=== PATIENT | female | born 1945 | race Caucasian/White ===

== ENCOUNTER → 2016-11-09 | Outpatient (CLI) | payer MEDICARE, OTHER ==
[~2016-11-09] MED LIST: ASPI-COR81 M1 PO; AZULFIDINE500 MG PO; BACTRIM DS 8001 TAB PO; CARDIZEM30 MG PO; CIPROFLOXACIN500 M4 PO; COREG3.125 MG PO; COUMADIN6 M1 PO; Coumadin5 MG PO; DO NOT PROFILE T1 EA; Duoneb 3ML 3 MG/3 ML INH; FLAGYL500 MG PO; FLONASE0.05 MG/AC NS; FLORASTOR 33 MG1 CAP PO; FLORASTOR250 MG PO; FOLIC ACID1 MG PO; FUROSEMIDE20 M1 PO; HYDROCODONE BIT1 T11 PO; IMDUR SA30 MG PO; IRON324 M1 PO; KEFLEX 500 MG E2 CAP PO; LASIX20 MG PO; LASIX40 MG PO; LEVAQUIN LEVA-750 MG PO; LEVAQUIN750 MG PO; LIQUACEL 30 ML30 ML PO; Lopressor25 MG PO; MAXIPIME2 G1 IJ; MULTI VITAMINS1 TAB PO; Micro K10 MEQ PO; PERCOCET 325 MG1 TA2 PO; POTASSIUM20 MEQ PO; PREDNISONE50 MG PO; PROBIOTIC FORMU1 CAP PO; PROMOD 946 ML946 ML PO; PROTONIX40 MG PO; QUESTRAN LIGHT4 GM PO; SODIUM BICARBO650 MG PO; SPIRIVA18 MCG IH; SYNTHROID,LEVO25 MCG PO; SYNTHROID,LEVO50 MCG PO; SYNTHROID0.05 MG PO; SYNTHROID0.112 MG PO; TOPROL XL25 MG PO; TYLENOL EXTRA500 MG PO; VANCOMYCIN HYD500 MG PO; VENTOLIN H0.09 MG/AC INH; VITAMIN B121000 MCG PO; VITAMIN C500 MG PO; VITAMIN D50000 I3 PO; WARFARIN SOD2 MG PO; ZINC SULFATE220 M1 PO; ZOLOFT50 MG PO; ZYRTEC10 M1 PO
--- NOTE | ~2016-11-09 | PR ---
[place], [place] PROGRESS NOTE NAME: NYA MARTINEZ [facility] #: [id number] UNIT #: [id number] ROOM: DOCTOR: ELMO CloudPINKY BIRTHDATE: [birth year] DOS: 11/09/2016 CHIEF COMPLAINT: Followup of bilateral leg ulcerations. HISTORY OF PRESENT ILLNESS: This is a 71-year-old female with a history of chronic venous leg ulcerations also complicated by morbid obesity and severe lymphedema. She has very uncontrolled edema has had difficulty tolerating wraps in the past on various occasions per patient report. She has recurrent infection with cellulitis; recent pseudomonas infection was treated with Cipro. She has one more day left and then will be done with her antibiotics. She was started on cleansing with Dakin's solution. We have been using Silvadene as well as Qwick has been ordered; however, home health did not provide the dressings that we had requested and she is just using Silvadene an ABD pad. She does not have a secondary dressing available at home. She is to have a lymphedema nurse who did come and evaluate her and they do not wish to do lymphedema at this point until she has had some healing in her wounds. Overall, she says the drainage is definitely improved quite a bit. It is not draining as much the erythema is also improved and she does feel better in general. PHYSICAL EXAMINATION: VITAL SIGNS: Stable. Blood pressure is 110/60; pulse of 74, respirations 18, temp is 98. The left leg wounds are measuring approximately the same. There is some improvement as far as the maceration goes. There is improvement in the erythema as well. There is no foul odor present. There is a moderate amount of fibrin slough present, but does not appear hypergranulated as normal as it has in the past and it is definitely not as friable and it is as before. Her right lower extremity also seems to have gotten improved as well. Her wound is measuring 23 x 24 x 0.1, but it is mostly confined to the left to the right calf as well. There is less necrotic tissue overall. The erythema and edema has improved as well. Debridement was done of the left leg, selective debridement only just to remove the top layer of the fibrin slough. There is still quite a bit of fibrin slough present left after debridement so this was only a selective debridement at this time. This was accomplished with a curette. There was a minimal amount of bleeding that was controlled with pressure. Post-debridement measurements are unchanged. The patient tolerated the debridement well. The right lower extremity wound was left alone as it does seem to be fairly superficial at this time. ASSESSMENT AND PLAN: Recurrent venous leg ulcerations with recurrent cellulitis and pseudomonas infection. It definitely looks better this week than has in the past, so I would like to stay with the same dressings. I have reached out to home health once again to find out what is going on with her dressings and why she is not being provided the dressings that we have ordered. I think she definitely needs to continue with a dry of superabsorbent secondary dressing. Today in our clinic, we used Silvadene and Maxorb with ABD pads over that as that is what we have, that is our absorptive dressing that is available to us in the wound clinic; however, she was using Qwick which seems to really help according to the patient. We will continue with Tubigrip for now and once we may want to try the compression again, I would really like to try with 3-layer wrap at some point; however, I would like to try to stabilize the drainage a [place], [place] PROGRESS NOTE NAME: MICHELLENYA L [facility] #: [id number] UNIT #: [id number] ROOM: DOCTOR: PINKY BORREGO M.D. BIRTHDATE: [birth year] little bit more before we attempt that again. Followup within 1 week. PINKY BORREGO MD CM:PNREY [id number] PINKY BORREGO M.D. 11/09/162121 interface
== END ==
LOC: WOUNDCARE 08:09
DX: I87.312 Chronic venous hypertension (idiopathic) with ulcer of left lower extremity (principal); L97.822 Non-pressure chronic ulcer of other part of left lower leg with fat layer exposed; L97.811 Non-pressure chronic ulcer of other part of right lower leg limited to breakdown of skin; E66.01 Morbid (severe) obesity due to excess calories; I89.0 Lymphedema, not elsewhere classified; B96.5 Pseudomonas (aeruginosa) (mallei) (pseudomallei) as the cause of diseases classified elsewhere

== ENCOUNTER → 2016-11-16 | Outpatient (CLI) | payer MEDICARE, OTHER ==
--- NOTE | ~2016-11-16 | PR ---
[place], [place] PROGRESS NOTE NAME: NYA MARTINEZ [facility] #: [id number] UNIT #: [id number] ROOM: DOCTOR: ELMO CloudPINKY BIRTHDATE: [birth year] DOS: 11/16/2016 CHIEF COMPLAINT: Follow up of bilateral leg ulcerations. HISTORY OF PRESENT ILLNESS: This is a 71-year-old female with a history of chronic nonhealing wounds of the bilateral lower extremities at least 4 years now. Initially, she had problems with mostly in the left leg; however, now the right leg is also affected. She has chronic edema, chronic lymphedema, venous insufficiencies with recurrent cellulitis and pseudomonas infections. She had been on antibiotics in the recent past weeks with improvement in the wounds and the drainage, edema and breakdown area were definitely improved at the last time we had seen her. However, she has been off the antibiotics for a little over a week now and has a recurrence of increased drainage, more areas of breakdown, skin denuded and large amounts of drainage. She has to change her dressings almost every couple hours in order to keep the dressings from becoming too moist. She was given a secondary dressing by Home Health. She is not quite sure what the name of it is, it was not the Q-Vac that we had ordered, but something in comparable it. She says it does absorb but it does continue to keep the skin moist around it, so it is not really doing a good job as far as trying to maintain excessive drainage away from the skin. She is also on Silvadene and still using Dakins. However, she says it is just being lightly sprayed onto the wound and then rinsed thoroughly. She has no fevers or chills, but she does notice increased odor and discomfort from the excessive amount of drainage. Her aunt is with her and she lives with her aunt at this time and her aunt does report that she has been keeping her legs down a little bit more than usual just in the recent past couple of days. She does use the Tubigrip at this time. OBJECTIVE: VITAL SIGNS: Temperature is 97.9, pulse is 76, respirations 18, blood pressure is 110/64. The measurements are approximately the same at 15 x 25 x 0.1 that is on the left leg. There is still a large amount of fibrin, slough present at the base of the wound. The edema seems slightly improved, there is still a fair amount of excoriation, erythema and excessive moisture, maceration around the periwound area. There is odor present that was not noticed last week. On the right lower extremity, the area that had appeared stable last week, which was on the anterior leg, is opened again and there is denuded skin secondary to severe edema. The severe edema that is just weeping profuse amounts of fluid. The posterior calf wound is about the same. There is some fibrin and slough present. It still seems relatively superficial as before. The edema does not appear to be any worse. Debridement was done of both lower legs wounds, just the tissue only removed was just nonviable fibrin, slough only. This was accomplished with curette. A separate curette for each leg was utilized. There is minimal amount of bleeding that was controlled with pressure. The tissue removed was just fibrin, slough only. This is a selective debridement only. ASSESSMENT AND PLAN: Chronic ulcerations of bilateral lower extremities now have increased signs of inflammation with increased amount of drainage, odor and worsening wound appearance as well as increased areas of breakdown and severe perfuse drainage. We will stop the Silvadene as it does not seem to be working [place], [place] PROGRESS NOTE NAME: BECKI MARTINEZBebeto Olvera [facility] #: [id number] UNIT #: [id number] ROOM: DOCTOR: PINKY BORREGO M.D. BIRTHDATE: [birth year] anymore. I am hesitant to put the patient back on antibiotics; however, her wounds definitely looks better when she is maintained on oral antibiotics, so we will go back to the regimen that seemed to help the most which was Cipro and Keflex together. I have placed a call to Dr. Burr's office, he is aware of the plan, I did discuss this my hesitation with the patient with her history of C. diff and also her being on Coumadin; however, at this point, I do not see that we have any other feasible options for now as I think that this is the best her legs have looked when she has been on antibiotics. We will continue with the Dakin's for now, but I would have them change the dressing daily instead of 3 times a week and have them use a Dakins and keep it on the wound for a few minutes with a gauze pad and then rinse it thoroughly. I did swab the anterior tibia of the right leg with a little bit of Betadine. She said she has had Betadine before without any issues. I want to see if this will help dry up the area a little bit. This was just a one-time trial to see if this offers any benefit. So instead of Silvadene, we will use a different silver product arglaes powder has not been used on the patient, so we will try this to see if this will help absorb drainage and have her use the Maxorb over it or another alternate whatever is available by Home Health and ABD pads and have her change it daily. We will use the Tubigrip for just to help hold the dressings in place. At some point, we are going to have to try compression again, but I would like to see if we can control the drainage a little bit more before applying this. She is to follow up with us in 1 week, and I did ask her to call and report to us tomorrow to see if the Betadine seemed to help at all with some of the excessive drainage on the just areas of weepiness. Followup is in 1 week. PINKY BORREGO MD CM:MONTY [phone] PINKY BORREGO M.D. 11/17/16 1024 interface
== END ==
LOC: WOUNDCARE 01:24
DX: I87.313 Chronic venous hypertension (idiopathic) with ulcer of bilateral lower extremity (principal); L97.822 Non-pressure chronic ulcer of other part of left lower leg with fat layer exposed; L97.811 Non-pressure chronic ulcer of other part of right lower leg limited to breakdown of skin; E66.9 Obesity, unspecified; I89.0 Lymphedema, not elsewhere classified; I87.2 Venous insufficiency (chronic) (peripheral); B96.5 Pseudomonas (aeruginosa) (mallei) (pseudomallei) as the cause of diseases classified elsewhere

== ENCOUNTER → 2016-11-23 | Outpatient (CLI) | payer MEDICARE, OTHER ==
--- NOTE | ~2016-11-23 | PR ---
[place], [place] PROGRESS NOTE NAME: NYA HANDLEY [facility] #: [id number] UNIT #: [id number] ROOM: DOCTOR: ELMO CloudPINKY BIRTHDATE: [birth year] DOS: 11/23/2016 SUBJECTIVE: Ms. Handley comes in for her followup wound care visit. CHIEF COMPLAINT: Followup of bilateral leg ulcerations. HISTORY OF PRESENT ILLNESS: The elements are chronic nonhealing wounds of bilateral lower extremities, almost the entire lower left leg, and the calf area of the right leg. The etiology is venous insufficiency, chronic lymphedema with recurrent cellulitis, and chronic recurrent Pseudomonas infections. The patient has been started on antibiotics again ciprofloxacin and Keflex last week as she had increased areas of breakdown with erythema and profound drainage. She comes in today without any new complaints. She still has a lot of issues with drainage. She is using the Dakin solution and also trying to keep her legs elevated. She has not tolerated compression wraps well in the past and is just using a Tubigrip at home. She still has to change her dressings twice a day as get they do get quite soaked. PHYSICAL EXAMINATION: VITAL SIGNS: She is afebrile, pulse is 76, respirations 18, temperature is 99, blood pressure is 108/60. EXTREMITIES: The left leg measurements are the same at 15 x 25 x 0.1. There is still some erythema, which is chronic, but overall looks slightly improved. Large amounts of fibrin slough present in the base of the wounds. The right lower extremity is measuring 23 x 24 x 0.1 and is mostly located in the calf area, right calf area. Debridement was done to remove fibrin and slough. This was a selective debridement of both lower extremities. There was a moderate amount of bleeding on the right lower extremity that was controlled with pressure. Post-debridement measurements are unchanged. The patient tolerated debridement well. ASSESSMENT AND PLAN: Chronic venous stasis ulcerations with lymphedema. I think the issue is the uncontrolled edema that is keeping these wounds from healing. She has not tolerated the 3-layer wraps well or the 4-layer wrap as well nor Unna boots in the past. She does continue to have large amounts of drainage. I would like to see if we can do a wrap that she can use at home and can remove at night if she needs to change her dressings. I would continue with Arglaes powder as she just got two doses of it and so we do not really know if she is going to respond to it or not, and I would like her to go back to the Vashe solution for cleansing rather than Dakin. I would like to try to stay away from Dakin's for now. She is going to continue with her antibiotics and hopefully we will continue to see some signs of improvement. She is considering in getting an opinion from the [facility], but would like to wait until [place], [place] PROGRESS NOTE NAME: NYA HANDLEY UNIT #: [id number] ROOM: DOCTOR: PINKY BORREGO M.D. BIRTHDATE: [birth year]. Also, she is going to see if her insurance will approve a possible second opinion from [facility], which is in [place]. They do have a wound clinic there and I do recommend that she does try to obtain another opinion as we have not been able to heal her legs and she has been here in the Wound Clinic for several years without any significant changes. She has apparently tried whirlpool therapy, which she said really seemed to help a lot for her. We do not have a whirlpool and this may be something that she may consider if going back to the place to [place], which they did have whirlpool therapy there. So we will see if her insurance approves for another opinion, I would definitely recommend this. Followup is in one week. She does have home health. We ordered the Comprilan short stretch bandages to be used. I hope that she will be able to manage wrapping her legs during the day, at least she may be able to remove them at night, but I think that keeping them wrapped during the day might help if she can tolerate them. Followup is in one week. PINKY BORREGO MD CM:PNTRANS [phone] PINKY BORREGO M.D. 12/02/16 1331 interface
== END | disposition home or self-care (01) ==
LOC: WOUNDCARE 00:46
DX: I87.313 Chronic venous hypertension (idiopathic) with ulcer of bilateral lower extremity (principal); L97.822 Non-pressure chronic ulcer of other part of left lower leg with fat layer exposed; L97.811 Non-pressure chronic ulcer of other part of right lower leg limited to breakdown of skin; E66.9 Obesity, unspecified; I87.2 Venous insufficiency (chronic) (peripheral); I89.0 Lymphedema, not elsewhere classified; B96.5 Pseudomonas (aeruginosa) (mallei) (pseudomallei) as the cause of diseases classified elsewhere

== ENCOUNTER 2016-11-30 10:42 | Emergency (ER) | payer MEDICARE, OTHER ==
[~2016-11-30] VITALS: Ht 170.1 cm; Wt 139.3 kg
[~2016-11-30 10:42] MED LIST changes: -CIPROFLOXACIN500 M4 PO; -FUROSEMIDE20 M1 PO; -IMDUR SA30 MG PO; -KEFLEX 500 MG E2 CAP PO; -Lopressor25 MG PO; -PREDNISONE50 MG PO; -VENTOLIN H0.09 MG/AC INH; -WARFARIN SOD2 MG PO
[2016-11-30] MEDS ORDERED: CIPROFLOXACIN500 M4 PO (11:05)
[2016-11-30] MEDS ORDERED: Lopressor25 MG PO (11:06)
[2016-11-30] MEDS ORDERED: KEFLEX 500 MG E2 CAP PO (11:06)
[2016-11-30] MEDS ORDERED: WARFARIN SOD2 MG PO (11:07)
[2016-11-30] MEDS ORDERED: FUROSEMIDE20 M1 PO (11:08)
[2016-11-30] MEDS ORDERED: IMDUR SA30 MG PO (11:09)
[2016-11-30 11:10] VITALS: BP 99/64
[2016-11-30 11:49] LABS: BASO % 0.4 % (0.0-1.0); EOS # 0.5 10*3/uL (0.0-0.4); EOS % 5.3 % (1.0-4.0); HEMATOCRIT 36.2 % (37.0-47.0); HEMOGLOBIN 10.6 g/dl (12.0-16.0); LYMPH # 0.9 10*3/uL (1.3-4.4); LYMPH % 10.1 % (27.0-41.0); MEAN CELL VOLUME 87.4 fl (81.0-99.0); MEAN CORPUSCULAR HGB 25.6 pg (27.0-31.0); MEAN CORPUSCULAR HGB CONC 29.3 g/dl (33.0-37.0); MEAN PLATELET VOLUME 8.9 fl (9.6-12.3); MONO # 0.7 10*3/uL (0.1-1.0); MONO % 7.9 % (3.0-9.0); NEUT # 7.1 10*3/uL (2.3-7.9); NEUT % 75.9 % (47.0-73.0); PLATELET COUNT AUTOMATED 281 10*3/uL (130-400); RED BLOOD COUNT 4.14 10*6/uL (4.10-5.10); RED CELL DISTRI WIDTH 17.6 % (0-14.5); WHITE BLOOD COUNT 9.3 10*3/uL (4.8-10.8)
[2016-11-30 12:13] LABS: ALBUMIN 2.5 gm/dl (3.1-4.5); ALKALINE PHOSPHATASE 79 U/L (45-117); BILIRUBIN, TOTAL 0.3 mg/dl (0.2-1.0); BUN 30 mg/dl (7-24); CARBON DIOXIDE 26 mmol/L (21-32); CHLORIDE 108 mmol/L (98-107); EST GLOM FILT AFRICAN AMERICAN 34 ml/min; GLUCOSE 77 mg/dL (65-99); MAGNESIUM 2.3 mg/dL (1.5-2.1); POTASSIUM 4.4 mmol/L (3.5-5.1); SGOT/AST 17 IU/L (3-35); SGPT/ALT 15 U/L (12-78); SODIUM 143 mmol/L (136-145); TOTAL PROTEIN 7.6 gm/dL (6.4-8.2)
[2016-11-30 12:17] LABS: TROPONIN I < 0.015 ng/ml (<0.5)
[2016-11-30 12:20] LABS: INTERNATIONAL NORM RATIO 2.2 (2.0-3.5); PROTHROMBIN TIME 23.5 SECONDS (9.0-12.4)
[2016-11-30 12:49] LABS: BILIRUBIN NEGATIVE (NEGATIVE); BLOOD TRACE-INTACT (NEGATIVE); CLARITY CLOUDY (CLEAR); COLOR YELLOW (YELLOW); GLUCOSE NEGATIVE (NEGATIVE); KETONE NEGATIVE (NEGATIVE); LEUKO ESTERASE 1+ (NEGATIVE); NITRITE NEGATIVE (NEGATIVE); PH 5.5 (5.0-9.0); PROTEIN TRACE (NEGATIVE); UROBILINOGEN 0.2 E.U./dl (0.2-1.0)
[2016-11-30 13:26] LABS: BACTERIA 3+; URINE REFLEX COMMENT YES (NO); YEAST 2+
[2016-11-30 13:28] LABS: EPITHELIAL CELLS 20-25
[2016-11-30] MEDS ORDERED: PREDNISONE50 MG PO (14:49)
[2016-11-30] MEDS ORDERED: VENTOLIN H0.09 MG/AC INH (14:52)
== END 2016-11-30 14:56 | disposition home or self-care (01) ==
LOC: ED 10:42
PROVIDERS: Student in an Organized Health Care Education/Training Program
DX: J44.1 Chronic obstructive pulmonary disease with (acute) exacerbation (principal); I48.91 Unspecified atrial fibrillation; I25.10 Atherosclerotic heart disease of native coronary artery without angina pectoris; I25.2 Old myocardial infarction; N18.3 Chronic kidney disease, stage 3 (moderate); Z79.01 Long term (current) use of anticoagulants; Z88.6 Allergy status to analgesic agent; Z79.82 Long term (current) use of aspirin; Z79.899 Other long term (current) drug therapy; Z85.828 Personal history of other malignant neoplasm of skin

== ENCOUNTER → 2016-11-30 | Outpatient (CLI) | payer MEDICARE, OTHER ==
--- NOTE | ~2016-11-30 | PR ---
[place], [place] PROGRESS NOTE NAME: NYA MARTINEZ [facility] #: [id number] UNIT #: [id number] ROOM: DOCTOR: ELMO CloudPINKY BIRTHDATE: [birth year] DOS: 11/30/2016 CHIEF COMPLAINT: Followup of bilateral leg ulcerations. HISTORY OF PRESENT ILLNESS: The elements: The patient is a longstanding patient of the wound clinic with chronic nonhealing wounds of the bilateral lower extremities, almost the entire left lower extremity circumferential wound as well as the right. She does have a wound of the right calf, but has an extension of denuded skin on the anterior leg as well with weeping recurrent infections with pseudomonas, chronic erythema, large amounts of profuse drainage, and difficulty with compression. She offers no specific complaints. She still has a lot of drainage. She says she is not getting enough dressings from home health. The only time she experiences pain is when the wound fluid is sitting on the outer dressings and accumulating and causing discomfort because of excessive fluid. She is using the Arglaes powder, the Vashe solution and ABD pads as well as an alginate dressing; however, this is not enough and she does need to change her dressing quite frequently, but does not have enough dressing supplies for daily dressing changes. She does sometimes change the outer dressing quite frequently if it gets wet. We have tried using dressings in the past that were more absorptive such as DryMax Blue, which seems to really help; however, this was not available through home health. She does have home health and they have certain restrictions as far as wound dressings are concerned. In addition, I have requested for them to try to wrap her legs with a short stretch bandaging that she can remove at night. They are attempting to try to order this for the patient. The patient also complains of shortness of breath she has had that has been progressively worsening, a chronic cough that is productive of purulent sputum and difficulty lying flat secondary to shortness of breath. She said she has seen her primary care doctor and was asked to get a chest x-ray which she has not had done today, but she does complain of shortness of breath at this time. OBJECTIVE: VITAL SIGNS: Stable. Blood pressure is 104/64, pulse of 80, respirations 20, temperature is 98.1. WOUND EXAMINATION: The left leg looks the same 15 x 25 x 0.1. There is large amounts of exudate and large amounts of fibrin slough in the wound bed. The right lower leg calf wound is essentially the same 23 x 24 x 0.1 and there is a large amount of denuded skin on the anterior lower extremity secondary to excessive weeping. The posterior calf wound is essentially the same. Superficial fibrin slough is noted in the wound base. There is chronic erythema. It does not appear to be worse than usual. It appears to be fairly stable at this time. Debridement was done of the left lower leg as well as the right lower leg calf area, which the debridement that occurred was to remove fibrin, slough, and subcutaneous tissue. There was a moderate amount of bleeding that was controlled with pressure. Post-debridement measurements are unchanged. Curette was utilized. ASSESSMENT AND PLAN: Chronic nonhealing ulcerations of the bilateral lower extremities without any improvement. We have tried several different dressings without any significant improvement, some dressings improve the wound for a [place], [place] PROGRESS NOTE NAME: NYA MARTINEZ UNIT #: [id number] ROOM: DOCTOR: PINKY BORREGO M.D. BIRTHDATE: [birth year] short period of time, but always seems to be very temporary. We will continue with the Vashe solution for now and have her utilize the Arglaes for one more week to see if there is any change as far as improvement in the wound appearance. If not, we will perhaps have to change to a different dressing in the near future to try something else so we will continue with the Maxorb and ABD pads. We are going to use a Coban for compression, but as soon as a short stretch bandage is available that we would like her to use that instead. Home health does help her with her dressings. She is awaiting to see if she can get a second opinion from another wound clinic in [place]. She is awaiting to seek approval from her outpatient case manager for her insurance company. I am very much interested in her obtaining another opinion as she has been here for several years and has not really made any progress. We have had venous intervention done as well, lymphedema pumps have been tried. She said at one point she used whirlpool therapy, which seemed to really help her. We do not have whirlpool therapy at this facility available. The other concern is her complaints of shortness of breath, cough, and symptoms of respiratory infection. She does appear short of breath with just upon talking. She does not have any respiratory distress, but does appear mildly tachypneic with just a conversation. She does have a notable cough and some wheeze on examination and coarse breath sounds in the bases as well, left being worse than the right. I spoke to the patient that since she would continue to feel short of breath that she should probably be evaluated in the Emergency Room Department, she agreed. I did phone a report to the physician in the ED, Dr. Burr who is willing to accept the patient for evaluation so the patient was taken to the ER for further evaluation. PINKY BORREGO MD CM:PNTRANS [phone] PINKY BORREGO M.D. 12/01/16 0935 interface
== END ==
LOC: WOUNDCARE 03:49
DX: I87.313 Chronic venous hypertension (idiopathic) with ulcer of bilateral lower extremity (principal); L97.822 Non-pressure chronic ulcer of other part of left lower leg with fat layer exposed; L97.811 Non-pressure chronic ulcer of other part of right lower leg limited to breakdown of skin; I89.0 Lymphedema, not elsewhere classified; B96.5 Pseudomonas (aeruginosa) (mallei) (pseudomallei) as the cause of diseases classified elsewhere; R06.02 Shortness of breath; E66.9 Obesity, unspecified

== ENCOUNTER → 2017-01-25 | Outpatient (CLI) | payer MEDICARE, OTHER ==
[~2017-01-25] MED LIST changes: +CIPROFLOXACIN500 M4 PO; +FUROSEMIDE20 M1 PO; +IMDUR SA30 MG PO; +KEFLEX 500 MG E2 CAP PO; +Lopressor25 MG PO; +PREDNISONE50 MG PO; +VENTOLIN H0.09 MG/AC INH; +WARFARIN SOD2 MG PO
--- NOTE | ~2017-01-25 | PR ---
[place], [place] PROGRESS NOTE NAME: NYA MARTINEZ [facility] #: [id number] UNIT #: [id number] ROOM: DOCTOR: ELMO CloudPINKY BIRTHDATE: [birth year] DOS: 01/25/2017 This is a routine wound care followup. CHIEF COMPLAINT: Bilateral leg ulcerations. HISTORY OF PRESENT ILLNESS: The location of the wounds are the bilateral lower legs. The left wound is chronic for 4 years and nonhealing with recurrent cellulitis, localized wound infection, large amounts of drainage as well as a wound on the right calf, which is also associated with venous insufficiency and severe lymphedema. She has had a recent stay at a long-term acute care facility for wound care to have daily dressing changes to help her get control of the drainage as well as daily wound care therapy. She was also treated with a cold laser treatment, which seemed to really have helped her inflammation. She comes in today without any specific complaints. She is using the Drawtex, the home health was able to obtain this for her. She is also using acetic acid solution for washing her legs. She states that they have just been squirting it on the wounds instead of putting on a 4 x 4s and directly on to the wounds, so some of this acetic acid is likely getting on other parts of the leg rather than just the wounds themselves. Overall, she has no specific complaints. She has noticed a little bit more drainage on the left leg, little more areas of denuded skin on the left leg, but overall, no specific complaints. PHYSICAL EXAMINATION: VITAL SIGNS: Stable. Blood pressure is 102/60, pulse is 66, respirations 18, temperature 98.5. EXTREMITIES: The left lower leg wounds are measuring 14 x 28 x 0.1. In general, they look about the same, there is slightly less necrotic tissue overall. The erythema that normally present seems stable. There are some areas of denuded skin on the distal part of the wound, which I believe is secondary to drainage from the wound or possibly from the vinegar solution dripping down to these areas. The right lower extremity wound is measuring the same as well at 13 x 11 x 0.1. It looks relatively superficial with minimal fibrin slough present. Edema is present bilaterally as usual. A selective debridement was done of the left lower leg wound. I would say approximately 40% of this wound was debrided of devitalized tissue, only fibrin and slough, no subcutaneous tissue. The instrument used was a curette. The post-debridement measurements are unchanged. There was minimal amount of bleeding. The patient tolerated the debridement well. ASSESSMENT AND PLAN: Chronic ulceration secondary to venous insufficiency and severe lymphedema. The patient does not tolerate compression very well. The wounds appear stable in general without any signs of acute infection. We will continue with the silver dressing as well as Drawtex. She is still using acetic acid solution, we may want to consider switching to the Vashe solution, which is hypochlorite solution. She has used this before in the past and has had some good results with it. I did advise her to make sure that they are not using the acetic acid on good skin as well as will use Calazime to the periwound area to help protect it from the wound drainage. Follow up in one week. [place], [place] PROGRESS NOTE NAME: MICHELLENYA L UNIT #: [id number] ROOM: DOCTOR: PINKY BORREGO M.D. BIRTHDATE: [birth year] PINKY BORREGO MD CM:MONTY [phone] PINKY BORREGO M.D. 01/25/171922 interface
== END ==
LOC: WOUNDCARE 03:08
DX: I87.312 Chronic venous hypertension (idiopathic) with ulcer of left lower extremity (principal); L97.922 Non-pressure chronic ulcer of unspecified part of left lower leg with fat layer exposed; E66.9 Obesity, unspecified; I89.0 Lymphedema, not elsewhere classified

== ENCOUNTER → 2017-02-01 | Outpatient (CLI) | payer MEDICARE, OTHER ==
--- NOTE | ~2017-02-01 | PR ---
[place], [place] PROGRESS NOTE NAME: NYA MARTINEZ [facility] #: [id number] UNIT #: [id number] ROOM: DOCTOR: ELMO CloudPINKY BIRTHDATE: [birth year] DOS: 02/01/2017 WOUND CARE PROGRESS NOTE CHIEF COMPLAINT: Followup of nonhealing ulcers of the lower extremities. HISTORY OF PRESENT ILLNESS: The location of the wounds are the left leg and right calf associated with venous insufficiency, lymphedema, morbid obesity, recurrent cellulitis, chronic and nonhealing for several years now. She comes in today without any specific new complaints. She thinks overall the wounds are drained slightly more, there is slightly more discomfort. There is some increased breakdown because of drainage on the left leg, mostly. There are some new areas of serous fluid leaking through the right lower extremity as well. She has noticed this as well. She has been using Drawtex, acetic acid for washing her legs, and Arglaes powder as well as Drawtex. She has home health who comes in. She said that she does not have as much Drawtex left at the present time. Hopefully, this will be rectified soon. No fevers or chills are noted. OBJECTIVE: As follows: VITAL SIGNS: Temperature is 98.3, pulse of 60, respirations 18, blood pressure is 100/70. WOUND EXAMINATION: The wounds are measuring the same at 14 x 28 x 0.1 on the left leg. There is a fair amount of necrotic tissue present. This is an almost entirely circumferential wound. There is also a large wound on the posterior calf that is measuring the same as last week at 13 x 11 x 0.1. She does seem to have a little bit more edema noted on her legs today. There is some serous fluid seeping through the anterior right lower extremity. There is more redness noted today as well on the left lower extremity. There is some discoloration of the wounds secondary to what seems to be an Arglaes powder. There is more denuded skin distally as well as located in the lateral calf area as well. It does not look as clean as it did. There is moderate amount of necrotic tissue present. Debridement was done today of the left leg, mostly on the lateral part of the leg. This is more of a selective debridement only. This was also done with a different curette. A culture was obtained, a tissue culture of the left lower extremity wound as it was felt to be more erythematous than usual. ASSESSMENT AND PLAN: Chronic ulceration of bilateral lower extremities secondary to venous insufficiency and lymphedema. We have done a biopsy in the past. We may want to consider repeating this. She has been to Dr. Jefferson for venous ablation. This really has not made any improvement in her wounds as far that goes. She has had a 1 month stay at [facility], which did help some of the inflammation of the wounds, but did not really seem to make the wounds any smaller. She has been on silver now for quite some time without any significant improvement in the wounds. I would like to discontinue the acetic acid wash solution, which she had been using for an extended period of time and go back to the Vashe, which is a hypochlorite solution and Santyl as well as to continue with Drawtex. I would like to see if we can utilize compression on at least the right lower extremity, which is already starting to leak fluid from the anterior leg. She has had difficulty tolerating compression before, but we will have [place], [place] PROGRESS NOTE NAME: [facility] [id number] UNIT #: [id number] ROOM: DOCTOR: PINKY BORREGO M.D. BIRTHDATE: [birth year] home health change it 3 times a week if possible and follow up in the Wound Clinic in 1 week. We did mention about getting another consultation from the [facility]. She is willing to travel there, but does not think she is going to be able to go more than once. So I will call over there later this week to see if we can get some sort of a plan set for further referrals, consultations, possible treatment for this patient as we have not really gotten far with her wounds for a long time and she has been a Wound Clinic patient here for 4 years. The wounds have really made very little progress over the past year. PINKY BORREGO MD CM:PNTRANS [phone] PINKY BORREGO M.D. 02/02/17 1418 interface
== END ==
LOC: WOUNDCARE 01:27
DX: I87.313 Chronic venous hypertension (idiopathic) with ulcer of bilateral lower extremity (principal); L97.922 Non-pressure chronic ulcer of unspecified part of left lower leg with fat layer exposed; L97.211 Non-pressure chronic ulcer of right calf limited to breakdown of skin; I89.0 Lymphedema, not elsewhere classified; E66.01 Morbid (severe) obesity due to excess calories

== ENCOUNTER → 2017-02-08 | Outpatient (CLI) | payer MEDICARE, OTHER ==
--- NOTE | ~2017-02-08 | PR ---
[place], [place] PROGRESS NOTE NAME: NYA MARTINEZ [facility] #: [id number] UNIT #: [id number] ROOM: DOCTOR: ELMO CloudPINKY BIRTHDATE: [birth year] DOS: 02/08/2017 SUBJECTIVE: Followup of left leg ulcerations as well as right leg ulcerations. HISTORY OF PRESENT ILLNESS: The location of the wounds are the left leg and the right leg. The left leg wounds are essentially circumferential and the right leg wound is the entire calf. It is associated with venous insufficiency, lymphedema, morbid obesity, recurrent infection, and cellulitis. It has been chronic and nonhealing for several years now. She was urged to make a referral for the [facility] for a second opinion as we have made very little progress with her wounds. Last week, we did attempt a 3-layer wrap on the right lower extremity. However, the edema of her leg seems improved; however, the wound itself is larger and has more areas of denuded skin around the periwound likely secondary to increased drainage. She does complain of a significant amount of drainage and new areas of that are weeping, uncomfortable and painful. We stopped the acetic acid and went to the Vashe solution last week as well as trying Santyl again, but this seems to have not helped at all, in fact things seem to be worse this week. PHYSICAL EXAMINATION: VITAL SIGNS: She is afebrile, pulse is 90, respirations 18, blood pressure is 118/64. WOUND EXAMINATION: The wound on the left leg is measuring bigger at 22 x 28 x 0.1. There is a lot of periwound denuded skin, a lot of inflammation, some chronic erythema. I do not appreciate an odor at this time. There is moderate amount of fibrin and slough still present in the base of the wound despite the use of Santyl. The right posterior leg wound is also measuring bigger at 13 x 15.5 x 0.1. No debridement was done today. A swab culture was taken of the left lower extremity wound. A tissue culture was obtained last week, but however, it did not go for culture. It went for a biopsy, which just showed necrotic debris and there was some gram-positive cocci present, but it was not sent for culture, so the swab culture was obtained today. ASSESSMENT AND PLAN: Chronic leg ulcerations, bilateral lower extremities, chronic nonhealing, they are seemed to be worse. We tried stopping the silver products. It does not seem that she tolerates this well. Every time we have tried stopping the silver, the wounds have appeared worst. So, we will go back to Silvadene that is what she had been using for a while at [facility]. It did seem to kind of hold things steady. We will continue with Drawtex for now and I do want to use Dakin's for now because there is likely some critical colonization that is exacerbating things. We will also start her empirically on doxycycline. The medications were called into her pharmacy. She does have home health coming. We are not going to do any multilayer wraps. I would like daily dressing changes, if possible, although she has home health and this may not be possible. She does have a followup appointment with the [facility] later at the end of the month with the plastic surgeon. Hopefully, this will give her some better options. Follow up early next week. [place], [place] PROGRESS NOTE [facility]: [facility] [id number] UNIT #: [id number] ROOM: DOCTOR: PINKY BORREGO M.D. BIRTHDATE: [birth year] PINKY BORREGO MD CM:MONTY [phone] PINKY BORREGO M.D. 02/09/17 0936 interface
== END ==
LOC: WOUNDCARE 02:49
DX: I87.313 Chronic venous hypertension (idiopathic) with ulcer of bilateral lower extremity (principal); L97.822 Non-pressure chronic ulcer of other part of left lower leg with fat layer exposed; L97.811 Non-pressure chronic ulcer of other part of right lower leg limited to breakdown of skin; I89.0 Lymphedema, not elsewhere classified; E66.01 Morbid (severe) obesity due to excess calories; I48.91 Unspecified atrial fibrillation

== ENCOUNTER → 2017-02-14 | Outpatient (CLI) | payer MEDICARE, OTHER ==
--- NOTE | ~2017-02-14 | PR ---
[place], [place] PROGRESS NOTE NAME: NYA MARTINEZ [facility] #: [id number] UNIT #: [id number] ROOM: DOCTOR: ELMO CloudPINKY BIRTHDATE: [birth year] DOS: 02/14/2017 CHIEF COMPLAINT: Followup of bilateral leg ulcerations. HISTORY OF PRESENT ILLNESS: The wounds have been present on her legs for several years now without any improvement at all. For the past year, she has had steadily worsening wounds with repeated bouts of infection, cellulitis. She has had a 4-week long-term acute care, which helped her wounds slightly as far as the drainage and the redness goes, but did not make any improvements in size of the wounds at all. She was seen last week and was noted to have increased drainage with increased erythema and areas of denuded skin secondary to large amounts of drainage that was breaking down the periwound around both of her lower extremities. She was started back on antibiotics secondary to cultures growing pseudomonas and started back on Silvadene. She does better with the silver and the Dakin solution for antimicrobial purposes. She comes in today without any new complaints. Still has large amounts of drainage. No fevers or chills are noted. Does complain of pain whenever the dressings are saturated and it does break down the skin around the periwound area. PHYSICAL EXAMINATION: She is afebrile, pulse is 100, respirations 18, blood pressure is 98/58. The wounds are measuring the same. On the left leg, 28 x 22 x 0.1. Large amounts of necrotic tissue present, fibrin and slough. Periwound is denuded. There is breakdown from moisture. There are large amounts of serous drainage and chronic erythema. It is not as red as last week, that is the only difference that I see. The right lower extremity still has a very large wound on the calf, which is measuring 13 x 15.5 x 0.1 and it has a lot of denuded area on the skin secondary to increased drainage. Debridement was done of the left lower extremity. This was a selective debridement only. The tissue removed was fibrin and slough. There was no bleeding. Instrument utilized was a curette. Post-debridement measurements are unchanged. The patient tolerated the debridement well. ASSESSMENT AND PLAN: Chronic nonhealing ulcerations of bilateral lower extremities. She does not do well with compression. There is associated venous insufficiency and lymphedema. There is evidence of increased colonization. She is on antibiotics now. We are going to continue with the present dressings and have her follow up next week. She does have an appointment with the [facility] next week as well. Hopefully, they will be able to come up with a plan that is going to be helpful for her. [place], [place] PROGRESS NOTE NAME: MICHELLENYA L [facility] #: [id number] UNIT #: [id number] ROOM: DOCTOR: PINKY BORREGO M.D. BIRTHDATE: [birth year] PINKY BORREGO MD CM:PNTRANS [phone] PINKY BORREGO M.D. 02/15/17 0728 interface
== END ==
LOC: WOUNDCARE 01:55
DX: I87.313 Chronic venous hypertension (idiopathic) with ulcer of bilateral lower extremity (principal); L97.822 Non-pressure chronic ulcer of other part of left lower leg with fat layer exposed; L97.811 Non-pressure chronic ulcer of other part of right lower leg limited to breakdown of skin; E66.9 Obesity, unspecified; I48.91 Unspecified atrial fibrillation; I89.0 Lymphedema, not elsewhere classified

== ENCOUNTER → 2017-02-22 | Outpatient (CLI) | payer MEDICARE, OTHER ==
--- NOTE | ~2017-02-22 | PR ---
[place], [place] PROGRESS NOTE NAME: NYA MARTINEZ [facility] #: [id number] UNIT #: [id number] ROOM: DOCTOR: ELMO CloduPINKY BIRTHDATE: [birth year] DOS: 02/22/2017 CHIEF COMPLAINT: Followup of lower extremity ulcers. HISTORY OF PRESENT ILLNESS: The location of the wounds are the bilateral lower extremities, left one is larger than the right, associated with venous insufficiency, lymphedema, morbid obesity, chronic renal failure, chronic and nonhealing for several years now. We have made very little progress for this patient for several months now. She has had recurrent bouts of cellulitis, repeated pseudomonas infections, long-term acute stay, which did help with the drainage for a while, but did not make any difference as far as the wounds go. The wounds remained the same. Her major complaint is continued amount of excessive drainage. She has an appointment later this week at the [facility] for further consultation. OBJECTIVE: VITAL SIGNS: As follows: Temperature is 98.1, pulse of 98, respirations 18, blood pressure is 98/58. WOUND EXAM: The wounds are measuring about the same, 22 on the left x 28 x 0.1. There is large amount of fibrin slough present. It is circumferential. The amount of erythema seems slightly improved. The right lower extremity wounds are measuring 13.5 x 14 x 0.1, and they remained fairly superficial. She did have a large amount of fibrin slough present. The area of erythema seems slightly improved than last week. A debridement was done of the left leg. This was a selective only. Fibrin slough was removed, only minimal bleeding. Post-debridement measurements are unchanged. The patient tolerated the procedure well. ASSESSMENT AND PLAN: Chronic ulcerations of bilateral lower extremities, complicated by venous insufficiency, chronic lymphedema, morbid obesity, chronic and nonhealing. She has a followup appointment later this week with [facility]. Hopefully, they can come up with an alternative treatment as the treatments that we have tried several different dressings, none of which have really helped in a significant manner. She has a large amount of necrotic tissue present, may need operating room debridement to help remove this. She does not appear septic in any way or acutely infected. We are going to continue with Dakin for now and the Silvadene. This is the regimen that seems to have worked the best for her recently, so we will just continue with this. Follow up in one week if the patient has not been admitted through the [facility]. [place], [place] PROGRESS NOTE NAME: BECKI MARTINEZBebeto Olvera [facility] [id number] UNIT #: [id number] ROOM: DOCTOR: PINKY BORREGO M.D. BIRTHDATE: [birth year] PINKY BORREGO MD CM:MONTY [phone] PINKY BORREGO M.D. 02/22/171849 interface
== END ==
LOC: WOUNDCARE 02:22
DX: I87.313 Chronic venous hypertension (idiopathic) with ulcer of bilateral lower extremity (principal); L97.822 Non-pressure chronic ulcer of other part of left lower leg with fat layer exposed; L97.811 Non-pressure chronic ulcer of other part of right lower leg limited to breakdown of skin; I89.0 Lymphedema, not elsewhere classified; E66.01 Morbid (severe) obesity due to excess calories; N18.9 Chronic kidney disease, unspecified

== ENCOUNTER → 2017-03-01 | Outpatient (CLI) | payer MEDICARE, OTHER ==
--- NOTE | ~2017-03-01 | PR ---
[place], [place] PROGRESS NOTE NAME: NYA MARTINEZ [facility] #: [id number] UNIT #: [id number] ROOM: DOCTOR: ELMO CloudPINKY BIRTHDATE: [birth year] DOS: 03/01/2017 This is a routine wound care followup note CHIEF COMPLAINT: Bilateral leg ulcerations. HISTORY OF PRESENT ILLNESS: The wounds have been present for several years now. They are associated with chronic lymphedema, venous insufficiency, obesity, chronic renal failure. The wounds are associated with recurrent Pseudomonas staph infection, cellulitis with localized wound infections. There was a large amounts of drainage. She has Home Health coming in 3 times a week, the other day she changes the dressing on her own. She was supposed to be seen at the [facility] last week; however, there was some mix up with her appointment and when she went there, they drove all the way outdated for her appointments that she had scheduled, was told that she did not have an appointment and she had canceled the appointment and they did not have her on the schedule. Therefore, she was unable to see a physician. They did, however, schedule her for another appointment later in 03/24, so she does have a followup appointment at the [facility], but it is not again until the next month from now. This is quite unfortunate. She continues to complain of large amounts of drainage. There is no documented fever. No specific change with the wounds. PHYSICAL EXAMINATION: Is as follows: Temperature is 98, pulse is 99, respirations 18, blood pressure is 98/60. The wounds are measuring the same, 22 x 28 x 0.2 on the left leg. The right leg is 14 x 14 x 0.1. There is large amounts of necrotic tissue, fibrin and slough noted. There is a denuded skin distally secondary to excessive amounts of drainage. There is chronic edema and erythema present as well. Debridement was done of the left leg as there was large amounts of fibrin slough present. It was a selective debridement only. The tissue removed was just nonviable tissue only with fibrin and slough. This was accomplished with a curette. There was a rhoebyv-bo-nihfdqyh bleeding that was controlled with pressure. The patient tolerated the debridement well. ASSESSMENT AND PLAN: Chronic nonhealing ulcers of the left lower leg and right lower leg, complicated by multiple comorbidities that include lymphedema, venous insufficiency. She has not done well with the wraps in the past, which seemed to just irritate her skin even further, therefore we do not tried it. She is on Drawtex now, using it at least 3 times a week, possibly sometimes she will change it more. I would like her to try to change it twice a day for now just to see if we can keep this area dry as much as possible and to help control some of the drainage. She is on topical Silvadene for now, which seems to be the same that has worked for her in the past, although at now it does not appear to be helpful in any way. I would like to once where see her next week, consider changing her to a Mepitel transfer with silver in it and have her hopefully follow up with the [facility]. Her wounds were not getting any better, in fact, they seem to be getting worse and I think that she will eventually need to be seen by a plastic surgeon for further management at some point. The wounds have large amount of necrotic tissue and she may be a candidate for some plastic surgical intervention. Hopefully, this will be known in the near future when she follows up with the [facility]. She did have some success as far as [place], [place] PROGRESS NOTE NAME: NYA MARTINEZ [facility] #: [id number] UNIT #: [id number] ROOM: DOCTOR: PINKY BORREGO M.D. BIRTHDATE: [birth year] the drainage concern as it was concerned with the laser treatment that she received while she was inpatient at [facility], the laser treatment was more effective in helping control some of the drainage and inflammation, how she was able to purchase the machine on her own; however, it is not the exact type that she had before and does not seem to be as helpful. I did go ahead and try again to see if this will make a difference at all. Follow up in 1 week. PINKY BORREGO MD CM:PNTRANS [id number] PINKY BORREGO M.D. 03/02/178 interface
== END ==
LOC: WOUNDCARE 03:00
DX: I87.313 Chronic venous hypertension (idiopathic) with ulcer of bilateral lower extremity (principal); L97.822 Non-pressure chronic ulcer of other part of left lower leg with fat layer exposed; L97.811 Non-pressure chronic ulcer of other part of right lower leg limited to breakdown of skin; E66.9 Obesity, unspecified; I89.0 Lymphedema, not elsewhere classified; N18.9 Chronic kidney disease, unspecified

== ENCOUNTER → 2017-03-08 | Outpatient (CLI) | payer MEDICARE, OTHER ==
--- NOTE | ~2017-03-08 | PR ---
[place], [place] PROGRESS NOTE NAME: NYA MARTINEZ [facility] #: [id number] UNIT #: [id number] ROOM: DOCTOR: ELMO CloudPINKY BIRTHDATE: [birth year] DOS: 03/08/2017 SUBJECTIVE: The patient comes in for a followup wound care visit. CHIEF COMPLAINT: Bilateral leg ulceration. HISTORY OF PRESENT ILLNESS: The wounds are located on the bilateral legs. The left leg wound is essentially circumferential. The right leg wound is on the right calf. They are venous in nature, complicated by lymphedema and morbid obesity. She has had these wounds for years now. They have not healed. They have been steadily getting worse for the past over a year now. She has had repeated bouts of wound infection and cellulitis with recurrent Pseudomonas colonization. She has no new specific complaints. She feels that the drainage continues to be quite excessive. She is changing it twice a day. She still has an area below the wounds, especially on the left leg that is getting irritated from excessive drainage. She has tried Calazime and Aquaphor before in the past. They have not really made a difference as far as protecting the skin. We were using Drawtex for several weeks now without significant amount of improvement. She has been on Silvadene as well and Dakin solution for quite some time. OBJECTIVE: VITAL SIGNS: Are as follows, temperature is 97.8, pulse of 98, respirations 18, blood pressure is 104/64. WOUND EXAMINATION: The wounds are essentially the same 22 x 28 x 0.2, 14 x 14 x 0.1. There is large amount of fibrin slough present with periwound erythema, edema remains uncontrolled. There is weeping fluid throughout. Debridement was done of the left leg wound. This is a selective debridement only. The tissue removed was fibrin and slough. There was a minimal amount of bleeding that was controlled with pressure. Post-debridement measurements are unchanged. Tissue removed was fibrin, slough and this was accomplished with a curette. The patient tolerated the debridement well. A large amount of tissue was sent for a tissue culture. ASSESSMENT AND PLAN: Longstanding ulcerations of the bilateral lower extremities secondary to venous insufficiency and lymphedema. These wounds have been chronic and nonhealing and steadily getting worse despite aggressive wound care. I would like to change the dressing from Silvadene to honey for antimicrobial purposes. A culture was obtained again; however, she has home health and home health I was told will not provide the TheraHoney so she would be responsible for it and she is unable to obtain this as she will need a large amount of it, so at the present time, we will hold off on the honey. We will change the dressing from Drawtex to Mepilex AG transfer, see if this will help hold, absorb some of the drainage better. We have used it on previous patients with excessive drainage and it seemed to control it fairly well. She will need to use ABD pads over it and Kerlix and then continue twice a day daily changes. I would like to get away from the Dakin for now and go back to the acetic acid washes. She can follow up in the Wound Clinic in one week. In the meantime, we do have the Mepilex here so we are going to use Drawtex and Arglaes powder in its place until the Mepilex silver is available. Also, we will use Tubigrip for [place], [place] PROGRESS NOTE [facility] [id number] UNIT #: [id number] ROOM: DOCTOR: PINKY BORREGO M.D. BIRTHDATE: [birth year] edema control and she is going to be seen by the [facility] on March 24 I believe for a consultation and hopefully they will have some new options for her. Followup in 1 week. PINKY BORREGO MD CM:MONTY [phone] PINKY BORREGO M.D. 03/09/17 0810 interface
== END ==
LOC: WOUNDCARE 01:14
DX: I87.313 Chronic venous hypertension (idiopathic) with ulcer of bilateral lower extremity (principal); L97.822 Non-pressure chronic ulcer of other part of left lower leg with fat layer exposed; L97.811 Non-pressure chronic ulcer of other part of right lower leg limited to breakdown of skin; I89.0 Lymphedema, not elsewhere classified; E66.01 Morbid (severe) obesity due to excess calories

== ENCOUNTER 2017-03-15 10:17 | Inpatient (IN) | payer MEDICARE, OTHER ==
[~2017-03-15] VITALS: Ht 170.1 cm; Wt 145.4 kg
--- NOTE | ~2017-03-15 | PR ---
[place], [place] PROGRESS NOTE NAME: NYA MARTINEZ [facility] #: [id number] UNIT #: [id number] ROOM: 503 DOCTOR: ELMO CloudPINKY BIRTHDATE: [birth year] DOS: 03/22/2017 SUBJECTIVE: The patient was seen today for followup visit. She reports that her antibiotics were changed to oral ciprofloxacin. She did have some strikethrough drainage coming through the bandages during the night. Overall, no fevers or chills, and no worsening of her pain. OBJECTIVE: VITAL SIGNS: Stable. Temperature is 98.7, pulse of 85, respirations 20, blood pressure is 110/80. WOUND EXAM: The dressings were removed today. There is quite a bit strikethrough drainage on her padding noted today, which was not present 2 days ago. Once again, the wounds appear unchanged as far as the measurements go. There is large amount of necrosis still present. The left leg is almost completely circumferential of the lower half of the leg. The erythema is somewhat improved from when she was first admitted. There is no definite odor and some of the excoriated areas on the distal part of the leg are slightly improved, but overall, there has not been a great deal of improvement as far as margins of the wounds go, that is also with the right leg as well. LABORATORY DATA: The white count today is 5.2. Her hemoglobin is 9. Her platelets are 279, chloride is 109, BUN is 23, creatinine is 1.87 and glucose is 73, albumin is low at 2.3. ASSESSMENT AND PLAN: Chronic ulceration of the bilateral lower extremities. The wounds really have not changed significantly since she has been admitted. There has been some modest improvements in the amounts of drainage and discomfort, but the overall margins of the wounds are not any different. She continues to have large amounts necrosis and despite weekly debridements in the Wound Clinic. She is on antiseptics as well as topical antibiotics as well as oral/IV antibiotics. She has had recurrent pseudomonas infections as well. She is going to be going to the [facility] this Monday and hopefully, there will be some other treatment that can be offered for her that will help her wounds heal since she had been to this clinic for several years now without closure of these wounds, so we are anxiously awaiting this followup appointment. [place], [place] PROGRESS NOTE NAME: NYA MARTINEZ UNIT #: [id number] ROOM: [facility] DOCTOR: PINKY BORREGO M.D. BIRTHDATE: [birth year] PINKY BORREGO MD CM:MONTY [id number] PINKY BORREGO M.D. 03/23/17 0722 interface
--- NOTE | ~2017-03-15 | CON ---
[place], [place] REPORT OF CONSULTATION NAME: NYA MARTINEZ UNIT #: [id number] ROOM: 503 DOCTOR: PINKY BORREGO M.D. BIRTHDATE: [birth year] DOS: 03/16/2017 She has other multiple medical problems that are being managed by her medical team that include acute on chronic renal failure, chronic atrial fibrillation, low hypoalbuminemia and morbid obesity. PINKY BORREGO MD CM:CONSTR:REPORT OF CONSULTATION 1259 03/17/17 1437 interface
--- NOTE | ~2017-03-15 | PR ---
[place], [place] PROGRESS NOTE NAME: NYA MARTINEZ [facility] #: [id number] UNIT #: [id number] ROOM: 503 DOCTOR: ELMO CloudPIKNY BIRTHDATE: [birth year] DOS: 03/17/2017 WOUND CARE PROGRESS NOTE CHIEF COMPLAINT: Chronic ulcerations of the left and right lower extremity with wound infection and cellulitis. The patient reports today that she thinks there is slightly less drainage than before. It has not soaked all the way through this morning yet, usually by now the Tubigrip would be soaked and it has not come through as of yet which this is unusual. She did have some discomfort last night and did have to ask for a pain pill. No fevers or chills are noted, and she does not report any episodes of diarrhea. PHYSICAL EXAM: VITAL SIGNS: Her vitals are stable. Temperature is 98.1, pulse is 90, respirations 18, blood pressure is 90/76. SKIN: The left leg ulcer dressing was removed by me to examine the wound. Essentially, they look about the same; however, I do think that some of the redness and inflammation seems to have lessened a small amount. There is quite a bit of bleeding from the left calf wound, and from with seems to be dressing material sticking to the wound base. The area of denuded epithelium that was fairly new and weeping, and on the dorsum of the foot seems to have improved quite a bit as well and is starting to dry up. LABORATORY DATA: Her white count is down to 6.8. Her hemoglobin is 9, hematocrit is 29.4, platelets are 258. Her BUN is 54 and creatinine is 2.85, potassium is down to 5.1. The right leg ulcer dressing will be changed by nursing staff later today. I did want to see at least what the left leg looked like if these are the worst of the two. ASSESSMENT AND PLAN: Chronic nonhealing ulcerations of the bilateral lower extremities secondary to venous insufficiency and lymphedema, which is not controlled. She has recurrent problems with wound infection and cellulitis that causes increased drainage, increased wound margins, pain and discomfort for her. Currently, she is on antibiotics to cover pseudomonas. I would continue with the Dakins and the Silvadene for now and the b.i.d. dressing changes. Hopefully, we can get the drainage under better control and not have to do a twice a day, but I still think she needs at least twice daily changes for now. For some of the areas of skin, which are more susceptible to dressings adhering to them, especially on the left leg, I would like to use a small piece of Xeroform to help prevent adherence of the dressing and for further protection. We will continue with the other orders for now. [place], [place] PROGRESS NOTE NAME: NYA MARTINEZ UNIT #: [id number] ROOM: [facility] DOCTOR: PINKY BORREGO M.D. BIRTHDATE: [birth year] PINKY BORREGO MD CM:MONTY [phone] PINKY BORREGO M.D. 03/18/17 0341 interface
--- NOTE | ~2017-03-15 | PR ---
[place], [place] PROGRESS NOTE NAME: NYA MARTINEZ [facility] #: [id number] UNIT #: [id number] ROOM: 503 DOCTOR: HANSA KENNEY MD BIRTHDATE: [birth year] DOS: 03/18/2017 NEPHROLOGY FOLLOWUP NOTE SUBJECTIVE: The patient was seen and examined. She is awake and alert. She denies shortness of breath, nausea or vomiting. She states that she feels she may be getting fluid overloaded and is gaining weight. She wanted to stop her fluids if possible. PHYSICAL EXAMINATION: VITAL SIGNS: Showed temperature 97.8, pulse 74, respiratory rate 18 and blood pressure 94/52. HEENT: Shows no JVD. LUNGS: Diminished breath sounds. No wheeze. HEART: Normal S1, S2. No rub, thrill or gallop. ABDOMEN: Obese, soft, nontender. There is no organomegaly. EXTREMITIES: Showed 1-2+ edema, both lower extremities were wrapped. SKIN: Showed no rash. LABORATORY DATA: Hemoglobin 8.9, white count of 4.9, platelets of 270. BUN 42, creatinine of 2.5, sodium 140, potassium 4.8 and calcium of 7.8. IMPRESSION AND PLAN: 1. Acute on chronic kidney disease with a baseline creatinine that appears to be in the middle to upper ones range. The patient's acute kidney injury seems most consistent with a prerenal/acute tubular necrosis like picture. She has had slow improvement in her renal function. At this point, it is acceptable to stop her IV fluids to avoid excessive volume overload. We will observe her laboratory trends. Would encourage oral intake and oral fluids. 2. Anemia. Transfuse as felt needed. 3. Cellulitis. The patient is on antibiotics, receiving wound care. 4. History of atrial fibrillation. Continue medications. HANSA KENNEY MD CM:PNTRANS [phone] HANSA KENNEY MD 03/20/17 0536 interface
--- NOTE | ~2017-03-15 | PR ---
[place], [place] PROGRESS NOTE NAME: NYA MARTINEZ UNIT #: [id number] ROOM: 503 DOCTOR: FLORY HEDRICK BIRTHDATE: [birth year] DOS: 03/18/2017 SUBJECTIVE: The patient is a 72-year-old female who is being followed for cellulitis of the lower extremities. She is currently on Zosyn. Her cultures had previously grown Pseudomonas. She is tolerating the antibiotics without issues. Denies fevers, chills, nausea, vomiting or diarrhea. No rash or itch. No cough or shortness of breath. Does complain of burning of her bilateral lower extremities due to her chronic venous stasis ulcers. LABORATORY DATA: Showed WBC is 4.9, platelets 270. BUN 42, creatinine 2.48. CURRENT MEDICATIONS: Include Coumadin, zinc sulfate, multivitamin, Lactinex, Imdur, folic acid, vitamin D, aspirin, Lopressor, vitamin C, Zosyn, Restoril, Zofran, [place]. PHYSICAL EXAMINATION: VITAL SIGNS: Show temperature 97.3, pulse 70, respirations 18, BP 130/60. GENERAL: A 72-year-old morbidly obese female, in no acute distress. HEENT: Normocephalic, no thrush. LUNGS: Clear to auscultation bilaterally. Respirations even and unlabored. HEART: Regular rhythm. No murmur appreciated. ABDOMEN: Soft, nontender, obese. EXTREMITIES: Bilateral lower extremities with edema wrapped to the knees. SKIN: Warm, dry and otherwise intact, free of rashes. ASSESSMENT: Cellulitis of the lower extremities with chronic venous stasis ulcers. PLAN: Continue Zosyn. The case discussed with Dr. Greyson Bello. FEBRUARY RYLEY RUTH [place], [place] PROGRESS NOTE NAME: NYA MARTINEZ UNIT #: [id number] ROOM: 503 DOCTOR: FLORY HEDRICKFEBRUARY BIRTHDATE: [birth year] GREYSON BELLO MD CM:PNTRANS [id number] FEBRUARY FLORY [facility] 03/20/17 0407 interface
--- NOTE | ~2017-03-15 | CON ---
[place], [place] REPORT OF CONSULTATION NAME: NYA MARTINEZ [facility] #: [id number] UNIT #: [id number] ROOM: 503 DOCTOR: ELMO CloudPINKY BIRTHDATE: [birth year] DOS: 03/16/2017 WOUND CARE CONSULTATION CHIEF COMPLAINT: Chronic ulcerations of bilateral lower extremities. HISTORY OF PRESENT ILLNESS: This is a 72-year-old female who is well known to me from the Wound Clinic. She has been coming to the Wound Clinic for 4 years now. She has a history of chronic leg ulcerations secondary to venous insufficiency and lymphedema and has had chronic wound care therapy. The wounds just have never healed and have been for the past year at least, the wound has been steadily worsening. She has had repeated bouts of infection with increased wound margins, increased drainage, cellulitis. Most recent cultures have been repeatedly positive for pseudomonas. She had an extended period of stay in a long-term acute care facility, specifically for wound care. This was setup by me back in December. She was there for at least a month for wound care where the drainage was stabilized; however, the wound margins did not improve. She had some laser treatment done there that seemed to have helped for drainage and inflammation goes; however, once she was discharged from there, the laser treatment was no longer available to her and we do not have it in our Wound Clinic. After many discussions and recommendations for the patient to seek an alternative opinion at another facility such as the [facility], the patient did finally agree to another opinion from them. However, she had some problems setting up the appointments and there was some confusion regarding the timing of appointments and she unfortunately was not able to be seen on the first time she went there, so she does have a consultation set up later this month, I believe on the for the Wound Care Center over there. She has had some stabilization of the wounds in the past from Silver dressings. She had been on Silvadene for quite sometime and we tried to discontinue this last week as it was felt that a prolonged treatment with Silvadene was felt to not be working anymore. So, we discontinued the Silvadene last week and started her on TheraHoney and acetic acid washes for her recurrent and chronic pseudomonas. However, when she was seen yesterday in the Wound Clinic, it was obviously noted that the wounds were much worse, increasing wound margins with increasing drainage and pain, erythema and cellulitis. Therefore, it was advised that the patient be admitted for further wound care and IV antibiotics. It was recommended to possibly go to the [facility]; however, at that time, the patient was unable to drive to the clinic or have family take her to the Emergency Room at the [facility], so she elected to go through our Emergency Room Department for admission. PAST MEDICAL HISTORY: Significant for the following, abdominal abscess, atrial fib, C. diff colitis, coronary artery disease, history of recurrent cellulitis, cholelithiasis status post cholecystectomy, COPD, chronic kidney disease stage 3, lymphedema, obesity, chronic ulcerations, venous disease. She is status post venous ablation of the left leg, which did not improve the wounds at all. History of appendectomy and umbilical hernia repair. SOCIAL HISTORY: She is a nondrinker, does not use drugs. She is a former smoker, stopped smoking in the distant past. She lives with her aunt who helps [place], [place] REPORT OF CONSULTATION NAME: NYA MARTINEZ UNIT #: [id number] ROOM: [facility] DOCTOR: PINKY BORREGO M.D. BIRTHDATE: [birth year] drive her to appointments. She is ambulatory, but normally gets around in a wheelchair. FAMILY HISTORY: Significant for lung cancer in her father and diabetes in her mother. ALLERGIES: TO IODINE, NAPROXEN AND STEROID. CURRENT MEDICATIONS: That have been ordered are as follows: She is on zinc sulfate 220 mg p.o. daily, Theragran 1 tablet daily, Lactinex 1 tablet p.o. daily, Imdur 30 mg p.o. daily, folic acid 1 mg p.o. daily, vitamin B12 1000 mcg daily, vitamin D 5000 units p.o. daily, aspirin 81 daily, warfarin, vitamin C 500 p.o. b.i.d., albuterol 2.5 q.4 hours p.r.n., Zosyn 2.25 g IV q.8 hours, Restoril ____ mg p.o. at bedtime p.r.n., Zofran 4 mg IV q.6 hours p.r.n., morphine 2 mg IV q.4 hours p.r.n., milk of mag 30 mL p.o. daily, Dulcolax 10 mg per rectum or p.o., [place] 1 tablet q.4 hours p.r.n., Tylenol 650 p.o. q.4 hours. REVIEW OF SYSTEMS: She complains of a stinging, burning sensation and discomfort when her dressings are full fluid and that is what really causes her discomfort in her legs with some pruritus associated with the wounds as well. No fevers or chills. No chest pains or shortness of breath, nausea or vomiting. She does have some difficulty lying completely flat and keeping her legs elevated. The rest of the review of systems 10-point is negative except for what it ____ stated above. PHYSICAL EXAMINATION: VITAL SIGNS: She is afebrile, pulse is 79, respirations 20, blood pressure is 112/62. GENERAL: This is a pleasant female, slightly pale to examination, in no acute distress. She is morbidly obese. NECK: No JVD. LUNGS: Clear. She has an occasional expiratory wheeze noted that is very minimal. CARDIOVASCULAR: S1, S2, irregularly irregular. ABDOMEN: Morbidly obese, soft, and nontender. EXTREMITIES: She has weeping leg ulcers of the bilateral lower extremities, the left being worse than the right, but the left wound is essentially circumferential and encompasses almost the entire left lower leg. There is a lot of denuded skin around the periphery of the wound, which is increasing the margins of the wound and there is obvious redness, erythema, some fibrin slough is noted of the wounds as well with some darkish graying discoloration, which is likely from Silvadene staining, the silver staining. She has clear serous fluid draining from the wounds. The right lower extremity has a large wound that is mostly in the lateral side of the leg that is also now extending to the anterior portion of the leg. It is very weepy with advancing, denuded epithelial from excessive drainage and cellulitis. Edema is uncontrolled. Pulses are difficult to feel secondary to edema. Toes are warm and there is good capillary refill. LABORATORY DATA: Her ____ of 6.8, hemoglobin of 9.6, hematocrit of 31.6, platelets of 281. Chem-7 shows sodium 139, potassium of 5.5, BUN is 55 and [place], [place] REPORT OF CONSULTATION NAME: NYA MARTINEZ [facility] #: [id number] UNIT #: [id number] ROOM: 503 DOCTOR: PINKY BORREGO M.D. BIRTHDATE: [birth year] creatinine is 2.86, which is slightly improved from yesterday, which was 63 and 3.13. Magnesium is 2.4, albumin is low at 2.2. Cholesterol was 109, HDL is 70. ASSESSMENT AND PLAN: Chronic longstanding ulcerations. She has had biopsies done in the past. She has had a venous workup and venous ablation. She has had arterial studies done as well in the past. We were hoping to try to get her to the [facility] as soon as possible, but there has been a great delay in trying to get an appointment setup. Despite wound care everyday with debridement in the wound clinic on a weekly basis and wound care that has to try to control bioburden, moisture control and exudate management. Unfortunately, she has not been able to tolerate our compression wraps very well, although compression is definitely one of the cantrell components to healing these wounds. I have wanted to try to set her up with the lymphedema, but upon their evaluation, they felt her wounds were too severe for lymphedema therapy as well. Currently, there is what appears to be an exacerbation of infection. She is on IV antibiotics covering the pseudomonas that was recently cultured. This was a tissue culture from one of the left leg area wounds. For now, we will use a topical antiseptic, Dakin's will be utilized, Silvadene for bioburden control and an alginate for absorptive control. She will have to have her dressings changed twice today as the exudate is not going to be able to be controlled just on a daily dressing change. I would like her to try to get her legs up as much as possible. We can use Tubigrip now for edema control and IV antibiotics are going to be directed by Infectious Disease. Usually, the effect is limited and wounds tend to stabilize. PINKY BORREGO MD CM:CONSTR:REPORT OF CONSULTATION 1251 03/17/17 1443 interface
--- NOTE | ~2017-03-15 | PR ---
[place], [place] PROGRESS NOTE NAME: NYA MARTINEZ [facility] #: [id number] UNIT #: [id number] ROOM: 503 DOCTOR: ANNE MARIE GAMINO,HANSA Kerr BIRTHDATE: [birth year] DOS: 03/19/2017 NEPHROLOGY FOLLOWUP NOTE SUBJECTIVE: The patient was seen and examined. She is awake and alert. She was having a dressing change to her wounds. She denied any shortness breath, nausea, or vomiting. PHYSICAL EXAMINATION: VITAL SIGNS: Temperature 98.0, pulse 75, respirations 20, blood pressure 115/48. HEENT: Shows no JVD. LUNGS: Diminished breath sounds. No wheeze. HEART: Normal S1, S2. No rub, thrill, or gallop. ABDOMEN: Obese, soft, nontender. EXTREMITIES: Had 1+ edema. LABORATORY DATA: Hemoglobin 9.0, white count of 5.0, platelets of 275. Sodium 143, potassium 4.5, CO2 of 21, BUN 35, creatinine 2.0, calcium 7.9, phosphorus 3.0. Albumin of 2.0. IMPRESSION: 1. Acute kidney disease on chronic kidney disease. The patient's renal function appears to be improving. She is now off IV fluids. Continue supportive care. 2. Cellulitis. Continue wound care and ongoing supportive care. 3. Anemia. Transfuse as needed. 4. Hypertension. Continue medications. HANSA KENNEY MD CM:PNTRANS [phone] HANSA KENNEY MD 03/20/17 0403 interface
--- NOTE | ~2017-03-15 | PR ---
[place], [place] PROGRESS NOTE NAME: NYA MARTINEZ UNIT #: [id number] ROOM: 503 DOCTOR: ACE GAMINO,GREYSON Borges BIRTHDATE: [birth year] DOS: 03/20/2017 ADDENDUM I agree with the following plans as outlined in the Infectious Disease note. I will follow the patient clinically and adjust accordingly. GREYSON BELLO MD CM:PNTRANS [phone] GREYSON BELLO MD 03/20/17 0857 interface
[2017-03-15 10:34] VITALS: BP 137/89
[2017-03-15 11:13] LABS: BASO # 0.1 10*3/uL (0.0-0.1); BASO % 0.5 % (0.0-1.0); EOS # 0.2 10*3/uL (0.0-0.4); EOS % 1.8 % (1.0-4.0); HEMATOCRIT 37.5 % (37.0-47.0); HEMOGLOBIN 11.4 g/dl (12.0-16.0); LYMPH # 1.4 10*3/uL (1.3-4.4); LYMPH % 12.3 % (27.0-41.0); MEAN CELL VOLUME 82.8 fl (81.0-99.0); MEAN CORPUSCULAR HGB 25.2 pg (27.0-31.0); MEAN CORPUSCULAR HGB CONC 30.4 g/dl (33.0-37.0); MONO # 1.1 10*3/uL (0.1-1.0); MONO % 10.3 % (3.0-9.0); NEUT # 8.2 10*3/uL (2.3-7.9); NEUT % 74.7 % (47.0-73.0); PLATELET COUNT AUTOMATED 382 10*3/uL (130-400); RED BLOOD COUNT 4.53 10*6/uL (4.10-5.10); RED CELL DISTRI WIDTH 19.6 % (0-14.5)
[2017-03-15 11:27] LABS: POTASSIUM 5.6 mmol/L (3.5-5.1)
[2017-03-15 12:40] VITALS: BP 105/86
[2017-03-15 12:54] VITALS: BP 105/86
[2017-03-15 16:00] VITALS: BP 104/63
[2017-03-15 16:57] LABS: PROTHROMBIN TIME 34.5 SECONDS (9.0-12.4)
[2017-03-15 20:00] VITALS: BP 97/50
[2017-03-16] VITALS: BP 107/61
[2017-03-16 07:22] LABS: BASO % 0.3 % (0.0-1.0); EOS # 0.2 10*3/uL (0.0-0.4); EOS % 3.2 % (1.0-4.0); HEMATOCRIT 31.6 % (37.0-47.0); HEMOGLOBIN 9.7 g/dl (12.0-16.0); LYMPH # 0.8 10*3/uL (1.3-4.4); LYMPH % 12.1 % (27.0-41.0); MEAN CELL VOLUME 82.9 fl (81.0-99.0); MEAN CORPUSCULAR HGB 25.5 pg (27.0-31.0); MEAN CORPUSCULAR HGB CONC 30.7 g/dl (33.0-37.0); MEAN PLATELET VOLUME 8.4 fl (9.6-12.3); MONO # 0.7 10*3/uL (0.1-1.0); MONO % 10.2 % (3.0-9.0); NEUT % 73.8 % (47.0-73.0); PLATELET COUNT AUTOMATED 281 10*3/uL (130-400); RED BLOOD COUNT 3.81 10*6/uL (4.10-5.10); RED CELL DISTRI WIDTH 19.1 % (0-14.5); WHITE BLOOD COUNT 6.8 10*3/uL (4.8-10.8)
[2017-03-16 07:36] LABS: ALBUMIN 2.2 gm/dl (3.1-4.5); BILIRUBIN, TOTAL 0.4 mg/dl (0.2-1.0); MAGNESIUM 2.4 mg/dL (1.5-2.1); PHOSPHOROUS 4.2 mg/dL (2.5-4.9); POTASSIUM 5.5 mmol/L (3.5-5.1); TOTAL PROTEIN 7.1 gm/dL (6.4-8.2)
[2017-03-16 07:37] LABS: FREE T4 1.18 ng/dl (0.76-1.46)
[2017-03-16 07:42] LABS: THYROID STIM HORMONE (HS) 4.72 uIU/ml (0.358-4.75)
[2017-03-16 07:55] LABS: HEMOGLOBIN A1c 4.8 % (4.8-5.6)
[2017-03-16 07:56] LABS: INTERNATIONAL NORM RATIO 3.4 (2.0-3.5); PROTHROMBIN TIME 38.5 SECONDS (9.0-12.4)
[2017-03-16 08:00] VITALS: BP 112/62
[2017-03-16 08:49] LABS: VITAMIN D, 25-HYDROXY 37.1 ng/mL (30-100)
[2017-03-16 08:58] LABS: FOLIC ACID > 24.00 ng/mL (>5.38)
[2017-03-16 11:00] LABS: BILIRUBIN NEGATIVE (NEGATIVE); BLOOD NEGATIVE (NEGATIVE); CLARITY CLEAR (CLEAR); COLOR YELLOW (YELLOW); GLUCOSE NEGATIVE (NEGATIVE); KETONE NEGATIVE (NEGATIVE); LEUKO ESTERASE 1+ (NEGATIVE); NITRITE NEGATIVE (NEGATIVE); PH 5.5 (5.0-9.0); PROTEIN NEGATIVE (NEGATIVE); UROBILINOGEN 0.2 E.U./dl (0.2-1.0)
[2017-03-16 11:08] LABS: URINE TP/CRE RATIO 0.4 (<0.21)
[2017-03-16 11:16] LABS: BACTERIA TRACE; URINE REFLEX COMMENT YES (NO); WBC 0-2 wbc/hpf (0-5)
[2017-03-16 12:00] VITALS: BP 94/52
[2017-03-16 16:00] VITALS: BP 96/60
[2017-03-16 20:00] VITALS: BP 90/52
[2017-03-17] VITALS: BP 90/50
[2017-03-17 06:08] LABS: BASO % 0.4 % (0.0-1.0); EOS # 0.3 10*3/uL (0.0-0.4); EOS % 4.4 % (1.0-4.0); HEMATOCRIT 29.4 % (37.0-47.0); LYMPH % 14.1 % (27.0-41.0); MEAN CELL VOLUME 83.3 fl (81.0-99.0); MEAN CORPUSCULAR HGB 25.5 pg (27.0-31.0); MEAN CORPUSCULAR HGB CONC 30.6 g/dl (33.0-37.0); MEAN PLATELET VOLUME 8.6 fl (9.6-12.3); MONO # 0.7 10*3/uL (0.1-1.0); MONO % 10.6 % (3.0-9.0); NEUT # 4.8 10*3/uL (2.3-7.9); NEUT % 70.2 % (47.0-73.0); PLATELET COUNT AUTOMATED 258 10*3/uL (130-400); RED BLOOD COUNT 3.53 10*6/uL (4.10-5.10); RED CELL DISTRI WIDTH 19.1 % (0-14.5); WHITE BLOOD COUNT 6.8 10*3/uL (4.8-10.8)
[2017-03-17 06:34] LABS: POTASSIUM 5.1 mmol/L (3.5-5.1)
[2017-03-17 06:38] LABS: INTERNATIONAL NORM RATIO 2.8 (2.0-3.5); PROTHROMBIN TIME 31.4 SECONDS (9.0-12.4)
[2017-03-17 08:00] VITALS: BP 90/76
[2017-03-17 12:00] VITALS: BP 108/70
[2017-03-17 16:00] VITALS: BP 100/60
[2017-03-17 20:00] VITALS: BP 100/76
[2017-03-18] VITALS: BP 97/55
[2017-03-18 06:13] LABS: BASO % 0.4 % (0.0-1.0); EOS # 0.2 10*3/uL (0.0-0.4); EOS % 4.9 % (1.0-4.0); HEMATOCRIT 30.1 % (37.0-47.0); HEMOGLOBIN 8.9 g/dl (12.0-16.0); LYMPH % 19.5 % (27.0-41.0); MEAN CELL VOLUME 84.8 fl (81.0-99.0); MEAN CORPUSCULAR HGB 25.1 pg (27.0-31.0); MEAN CORPUSCULAR HGB CONC 29.6 g/dl (33.0-37.0); MEAN PLATELET VOLUME 8.8 fl (9.6-12.3); MONO # 0.5 10*3/uL (0.1-1.0); MONO % 10.9 % (3.0-9.0); NEUT # 3.1 10*3/uL (2.3-7.9); NEUT % 63.9 % (47.0-73.0); PLATELET COUNT AUTOMATED 270 10*3/uL (130-400); RED BLOOD COUNT 3.55 10*6/uL (4.10-5.10); RED CELL DISTRI WIDTH 19.1 % (0-14.5); WHITE BLOOD COUNT 4.9 10*3/uL (4.8-10.8)
[2017-03-18 06:40] LABS: INTERNATIONAL NORM RATIO 2.1 (2.0-3.5); PROTHROMBIN TIME 23.8 SECONDS (9.0-12.4)
[2017-03-18 06:44] LABS: POTASSIUM 4.8 mmol/L (3.5-5.1)
[2017-03-18 08:00] VITALS: BP 102/70
[2017-03-18 12:00] VITALS: BP 94/52
[2017-03-18 16:00] VITALS: BP 130/60
[2017-03-18 20:00] VITALS: BP 99/58
[2017-03-19] VITALS: BP 103/53
[2017-03-19 06:21] LABS: BASO % 0.6 % (0.0-1.0); EOS # 0.2 10*3/uL (0.0-0.4); HEMATOCRIT 30.1 % (37.0-47.0); HEMOGLOBIN 9.1 g/dl (12.0-16.0); LYMPH # 0.7 10*3/uL (1.3-4.4); LYMPH % 14.9 % (27.0-41.0); MEAN CELL VOLUME 83.8 fl (81.0-99.0); MEAN CORPUSCULAR HGB 25.3 pg (27.0-31.0); MEAN CORPUSCULAR HGB CONC 30.2 g/dl (33.0-37.0); MEAN PLATELET VOLUME 8.6 fl (9.6-12.3); MONO # 0.5 10*3/uL (0.1-1.0); MONO % 9.5 % (3.0-9.0); NEUT # 3.5 10*3/uL (2.3-7.9); NEUT % 70.8 % (47.0-73.0); PLATELET COUNT AUTOMATED 275 10*3/uL (130-400); RED BLOOD COUNT 3.59 10*6/uL (4.10-5.10); RED CELL DISTRI WIDTH 19.3 % (0-14.5)
[2017-03-19 06:55] LABS: PHOSPHOROUS 3.3 mg/dL (2.5-4.9); POTASSIUM 4.5 mmol/L (3.5-5.1)
[2017-03-19 06:57] LABS: INTERNATIONAL NORM RATIO 2.2 (2.0-3.5); PROTHROMBIN TIME 24.9 SECONDS (9.0-12.4)
[2017-03-19 08:00] VITALS: BP 110/63
[2017-03-19 12:00] VITALS: BP 115/48
[2017-03-19 16:00] VITALS: BP 101/48
[2017-03-19 20:00] VITALS: BP 97/51
[2017-03-20] VITALS: BP 108/66
[2017-03-20 06:10] LABS: BASO % 0.4 % (0.0-1.0); EOS # 0.2 10*3/uL (0.0-0.4); EOS % 3.5 % (1.0-4.0); HEMATOCRIT 30.3 % (37.0-47.0); HEMOGLOBIN 9.1 g/dl (12.0-16.0); LYMPH # 0.8 10*3/uL (1.3-4.4); LYMPH % 14.8 % (27.0-41.0); MEAN CELL VOLUME 84.4 fl (81.0-99.0); MEAN CORPUSCULAR HGB 25.3 pg (27.0-31.0); MEAN PLATELET VOLUME 8.6 fl (9.6-12.3); MONO # 0.5 10*3/uL (0.1-1.0); MONO % 9.4 % (3.0-9.0); NEUT # 3.7 10*3/uL (2.3-7.9); NEUT % 71.5 % (47.0-73.0); PLATELET COUNT AUTOMATED 279 10*3/uL (130-400); RED BLOOD COUNT 3.59 10*6/uL (4.10-5.10); RED CELL DISTRI WIDTH 19.3 % (0-14.5); WHITE BLOOD COUNT 5.2 10*3/uL (4.8-10.8)
[2017-03-20 06:36] LABS: INTERNATIONAL NORM RATIO 2.3 (2.0-3.5); PROTHROMBIN TIME 25.7 SECONDS (9.0-12.4)
[2017-03-20 06:37] LABS: BILIRUBIN, TOTAL 0.2 mg/dl (0.2-1.0); PHOSPHOROUS 3.3 mg/dL (2.5-4.9); POTASSIUM 4.3 mmol/L (3.5-5.1); TOTAL PROTEIN 6.6 gm/dL (6.4-8.2)
[2017-03-20 08:00] VITALS: BP 117/54
[2017-03-20 12:00] VITALS: BP 101/66
[2017-03-20 16:00] VITALS: BP 101/41
[2017-03-20 20:00] VITALS: BP 114/66
[2017-03-21] VITALS: BP 105/52
[2017-03-21 06:44] LABS: ALBUMIN 2.3 gm/dl (3.1-4.5); PHOSPHOROUS 3.3 mg/dL (2.5-4.9); POTASSIUM 3.9 mmol/L (3.5-5.1)
[2017-03-21 06:48] LABS: INTERNATIONAL NORM RATIO 2.1 (2.0-3.5); PROTHROMBIN TIME 23.5 SECONDS (9.0-12.4)
[2017-03-21 08:00] VITALS: BP 112/56
[2017-03-21 12:00] VITALS: BP 117/62
[2017-03-21 16:00] VITALS: BP 120/62
[2017-03-21] MEDS ORDERED: CIPRO500 MG PO (17:15)
[2017-03-21 20:00] VITALS: BP 100/48
[2017-03-22] VITALS: BP 135/58
[2017-03-22 07:29] LABS: INTERNATIONAL NORM RATIO 2.3 (2.0-3.5); PROTHROMBIN TIME 25.2 SECONDS (9.0-12.4)
[2017-03-22 08:00] VITALS: BP 108/82
[2017-03-22 12:00] VITALS: BP 110/80
[2017-03-22] MEDS ORDERED: COUMADIN5 M2 PO (13:41)
[2017-03-22] MEDS ORDERED: [UNRECOGNIZED DRUG - OTHER] T (13:42)
[2017-03-22] MEDS ORDERED: SSD1% T (13:42)
== END 2017-03-22 14:29 | disposition home health service (06) | DRG 602 ==
LOC: ED 10:17 → 5E 11:44 → EDHOLD 11:44 → 5E 12:24
PROVIDERS: Emergency Medicine; Family Medicine; Internal Medicine
DX: L03.116 Cellulitis of left lower limb (principal); N17.0 Acute kidney failure with tubular necrosis; E43 Unspecified severe protein-calorie malnutrition; E87.5 Hyperkalemia; I48.2 Chronic atrial fibrillation; J44.9 Chronic obstructive pulmonary disease, unspecified; L97.519 Non-pressure chronic ulcer of other part of right foot with unspecified severity; L97.829 Non-pressure chronic ulcer of other part of left lower leg with unspecified severity; L97.819 Non-pressure chronic ulcer of other part of right lower leg with unspecified severity; Z68.42 Body mass index [BMI] 45.0-49.9, adult; L03.115 Cellulitis of right lower limb; A49.8 Other bacterial infections of unspecified site; E66.01 Morbid (severe) obesity due to excess calories; N18.3 Chronic kidney disease, stage 3 (moderate); I25.10 Atherosclerotic heart disease of native coronary artery without angina pectoris; I89.0 Lymphedema, not elsewhere classified; D64.9 Anemia, unspecified; I10 Essential (primary) hypertension; I83.005 Varicose veins of unspecified lower extremity with ulcer other part of foot; L97.529 Non-pressure chronic ulcer of other part of left foot with unspecified severity; Z83.3 Family history of diabetes mellitus; I25.2 Old myocardial infarction; Z90.49 Acquired absence of other specified parts of digestive tract; Z87.891 Personal history of nicotine dependence; Z88.8 Allergy status to other drugs, medicaments and biological substances; Z91.041 Radiographic dye allergy status; Z79.51 Long term (current) use of inhaled steroids; Z79.82 Long term (current) use of aspirin; Z79.01 Long term (current) use of anticoagulants; Z79.899 Other long term (current) drug therapy; Z80.1 Family history of malignant neoplasm of trachea, bronchus and lung

== ENCOUNTER → 2017-03-15 | Outpatient (CLI) | payer MEDICARE, OTHER ==
--- NOTE | ~2017-03-15 | PR ---
[place], [place] PROGRESS NOTE NAME: NYA MARTINEZ [facility] #: [id number] UNIT #: [id number] ROOM: DOCTOR: ELMO CloudPINKY BIRTHDATE: [birth year] DOS: 03/15/2017 SUBJECTIVE: The patient comes in for followup of her chronic leg and bilateral leg ulcerations, which she has had for almost 4 years now. For the past several months, her wounds have been steadily worsening with complaints of increased drainage and last week a culture was taken, a tissue culture which grew Pseudomonas. This has been a recurrent organism that has been shown on Gram stain, although the culture was negative. She had been on Dakin's solution prior to that as well as Drawtex. Silvadene also had been applied, and we had stopped using the silver and try going to honey to see if that would help and using acetic acid washes instead. However, today she comes in with increased pain, increased drainage, unable to sleep at night due to the pain and discomfort from the continued drainage and new denuded skin secondary to this. It is more red than usual. She has had no documented fevers that she is aware of. She has home health coming in as well. She says "I will change the dressing and within 4 hours, it is soaked again", so she has to change it again, and she really has difficulty tolerating compression stockings. Any type of compression for many months now she has been unable to tolerate them. She says she is keeping her legs up as much as possible. She is currently not on an antibiotic. OBJECTIVE: VITAL SIGNS: Afebrile, pulse is 90, respirations 18, blood pressure is 98/58. WOUND EXAM: The wounds are marked measuring much larger at 29 x 28 x 0.2. There is large amount of denuded skin, cellulitis, warmth. Apparently, there was an odor when the dressings were initially removed reported by the staff. I do not appreciate an odor at the present time that is on the left leg. The right leg wounds are measuring larger as well by 23 x 20 x 0.1, it is now starting the calf wound is now starting to extend the lateral side and anterior portion of the leg, this is new. ASSESSMENT AND PLAN: Worsening wounds that are chronic, but are definitely worse. There is definitely an infection contributing to this. I believe although pseudomonas was present on Gram stain. There may be other organisms involved, I would recommend the patient for admission. I would highly recommend an admission at a tertiary center. However, where the plastic surgeon may be available for a consultation as well. A tertiary center such as [facility] or [facility]; however, due to her insurance, she prefers to go to an [place] [facility] tertiary center. After prolonged discussion with the patient and the Emergency Room physician today here at our hospital, the patient will be transferred to the Emergency Room here for further evaluation. If a bed is available at a tertiary center, I would recommend that; however, other option is for the patient to directly go to a tertiary center through their Emergency Department. Those options were given to the patient; however, she would prefer to come to our Emergency Room first and then based upon availability see where she can go from there. These wounds have not been improving. They have been steadily worsening despite aggressive wound care with debridement, antiseptic solutions, super absorber dressings, antibiotics off and on. She continues to have severe nonhealing ulcerations that are definitely affecting her quality of life. So, recommendation for dressings for now, I will go back to the [place], [place] PROGRESS NOTE NAME: [facility] [id number] UNIT #: [id number] ROOM: DOCTOR: PINKY BORREGO M.D. BIRTHDATE: [birth year] does seem that it did somewhat keep things at bay, although it did not help improve the wounds. It helps stabilize them when infected and a silver Maxorb dressing for now, which is what we have available and have her go through the ER for possible admission here versus another tertiary center, which I would recommend. PINKY BORREGO MD CM:MONTY [phone] PINKY BORREGO M.D. 03/20/17 0743 interface
== END ==
LOC: WOUNDCARE 01:09
DX: I87.313 Chronic venous hypertension (idiopathic) with ulcer of bilateral lower extremity (principal); L97.822 Non-pressure chronic ulcer of other part of left lower leg with fat layer exposed; L97.811 Non-pressure chronic ulcer of other part of right lower leg limited to breakdown of skin; E66.9 Obesity, unspecified; I48.91 Unspecified atrial fibrillation

== ENCOUNTER → 2017-04-06 | Outpatient (CLI) | payer MEDICARE, OTHER ==
[~2017-04-06] MED LIST changes: +CIPRO500 MG PO; +COUMADIN5 M2 PO; +SSD1% T; +[UNRECOGNIZED DRUG - OTHER] T
--- NOTE | ~2017-04-06 | PR ---
[place], [place] PROGRESS NOTE NAME: NYA MARTINEZ [facility] #: [id number] UNIT #: [id number] ROOM: DOCTOR: ELMO CloudPINKY BIRTHDATE: [birth year] DOS: 04/06/2017 CHIEF COMPLAINT: Followup of bilateral leg ulcerations. HISTORY OF PRESENT ILLNESS: This patient was seen early last month for her chronic wounds. She has had bilateral leg ulcerations for years that have not been improving and had been steadily getting worse. She was admitted early last month for worsening of her wounds cellulitis and wound infection, cultures at that time grew Pseudomonas. The patient was treated with IV antibiotics, due to the extent of her wounds and the worsening of them and the chronicity, it was felt that she should seek an opinion at the [facility] where she did eventually get to be seen there by Dr. Vega from the wound clinic and upon her initial presentation, it was felt that the patient needed admission over there due to the extent of her wounds and possibility of infection. Dr. Vega did speak to me and did mention that she would probably do an OR debridement. She felt a lot of the patient's poor healing was secondary to uncontrolled lymphedema, which is what we have felt as well. The patient has not tolerated compression very well and has not been able to get into the lymphedema clinic as her wounds are felt to be too extensive. In any case, the patient was admitted. She did undergo OR debridement was placed on IV antibiotics. She said vancomycin and ampicillin she believes she is on 2 weeks of antibiotics and is going to be 1 more week of the antibiotics are to be given. She currently is on a Maxorb dressing. She did have some form of compression and she does not know what it was, but she has been changing the dressing changes daily. She reports that sometimes the dressing stick to the good skin when she removes it and it does traumatize the wound and cause further bleeding so she is concerned about that. She also has no fevers or chills. No nausea or vomiting. She was taken off of her Lasix when she was here. It was earlier in the month of March, but feels that she should go back on it. She has a large amount of edema. She still has copious amounts of drainage and poorly controlled edema, although her wounds in general do look better today than they have looked in a long time and there is no cellulitis present on examination. SOCIAL HISTORY: She does not smoke or drink. She does ambulate. She is currently living with her aunt who lives in [place]. She has a new home health agency at least for short term, but this is going to be changing as well at some point. PHYSICAL EXAMINATION: VITAL SIGNS: Today, her vitals are stable. Temperature is 97.7, pulse of 98, respirations 18, blood pressure is 98/70. The wounds measurements on the left leg, the wound is essentially circumferential is 21 x 50 x 0.2. There is much less necrotic tissue overall. There is still a moderate amount of fibrin slough. The periwound looks good. There is no erythema at all and the edema, however, is pretty extensive its pitting and there is some leakage of clear serous fluid just weeping to the skin around it, but overall the wounds look much better than last time I saw the measurements are 21 x 50 x 0.2. The wound on the right posterior calf is slightly improved at 14 x 16 x 0.1 and now looks pretty good. It is fairly superficial. There is really no visible necrotic tissue. She does state that this wound bleeds quite easily with minimal [place], [place] PROGRESS NOTE NAME: NYA MARTINEZ [facility] #: [id number] UNIT #: [id number] ROOM: DOCTOR: PINKY BORREGO M.D. BIRTHDATE: [birth year] dressing changes and just cleaning it with saline. A debridement was done of the left leg, I would say. PINKY BORREGO MD CM:PNREY [id number] PINKY BORREGO M.D. 04/07/17 1129 interface
--- NOTE | ~2017-04-06 | PR ---
[place], [place] PROGRESS NOTE NAME: NYA MARTINEZ [facility] #: [id number] UNIT #: [id number] ROOM: DOCTOR: ELMO Cloud,PINKY BIRTHDATE: [birth year] DOS: 04/06/2017 ADDENDUM PHYSICAL EXAMINATION: A debridement was done. The tissue removed was fibrin, slough and subcutaneous tissue. There was a moderate amount of bleeding that was controlled with pressure. The patient tolerated the debridement well. A curette was utilized. I would say 40%-60% of the wound base was debrided and post-debridement measurements were unchanged. ASSESSMENT AND PLAN: Chronic ulcerations of the bilateral lower extremities, complicated by venous insufficiency, morbid obesity and lymphedema, which is uncontrolled. She apparently had a special type of wrap that she was using for a while, but now went back to her Tubigrip, which I do not think is adequate for compression. So, we will use Xeroform at the base to help prevent some of the dressings from adhering to the base of the wound. At some point, we may want to switch to Versatel, but let us try the Xeroform, she said she liked that in the past and they had used it also in the [facility]. We will do Maxorb, which is what they were using and then just have her change the dressings daily, but will use a 3-layer wrap and she can change this at home and do the 3-layer wrap on the day that home health cannot come in. So hopefully, we will be able to get all the supply that she needs. She is still on IV antibiotics. I believe she is on it for another week. She is going to see Dr. Waters today, Infectious Disease specialist. I am trying to obtain the discharge summary, consultations, and cultures that were done at the [facility] to further gain more information. She is going to follow up in the Wound Clinic in 1 week. PINKY BORREGO MD CM:PNTRANS [phone] PINKY BORREGO M.D. 04/07/17 1128 interface
== END | disposition home or self-care (01) ==
LOC: WOUNDCARE 00:40
DX: I87.312 Chronic venous hypertension (idiopathic) with ulcer of left lower extremity (principal); L97.822 Non-pressure chronic ulcer of other part of left lower leg with fat layer exposed; L97.411 Non-pressure chronic ulcer of right heel and midfoot limited to breakdown of skin; E66.01 Morbid (severe) obesity due to excess calories; I89.0 Lymphedema, not elsewhere classified

== ENCOUNTER → 2017-04-12 | Outpatient (CLI) | payer MEDICARE, OTHER ==
--- NOTE | ~2017-04-12 | PR ---
[place], [place] PROGRESS NOTE NAME: NYA MARTINEZ [facility] #: [id number] UNIT #: [id number] ROOM: DOCTOR: ELMO CloudPINKY BIRTHDATE: [birth year] DOS: 04/12/2017 The patient comes in for a followup wound care visit. CHIEF COMPLAINT: Bilateral leg ulcers. HISTORY OF PRESENT ILLNESS: The wounds have been present for several years now. They are venous in nature, complicated by lymphedema, morbid obesity, poorly controlled edema. She was recently at the [facility] for evaluation, had an OR debridement, was placed on IV antibiotics for multiple organisms that were detected. She had in OR debridement. She was also noted to have some chronic renal failure and problems with hyperkalemia while she was in the hospital. She was placed on IV antibiotics and has been seen by Dr. Waters here for continued management of this. She has home health, who comes in 3 times a week. On the days if they can't come; she does her own dressing with the help of her aunt. Once again, she has some difficulty obtaining enough dressing material and also she says that they are not using the Maxorb, but Aquacel instead. They do not have the Xeroform that we had recommended, which we have been using to help protect the skin from trauma during dressing changes and those are some of the difficulties. Also, they do not always have a 3-layer wrap and she has to use different materials for compression at times. She comes in today stating she is still on IV antibiotics. She is going to follow up with ID later this month and until then she is going to continue with IV antibiotics. She is not having any trouble with them that she is aware of. She has no fevers or chills and no other specific complaints. She says she thinks overall her legs are looking better. OBJECTIVE: VITAL SIGNS: Stable. Temperature 98.2, pulse of 84, respirations 18, blood pressure is 98/68. The wound on the left leg is measuring approximately the same at 21 x 50 x 0.2. There is moderate amount of fibrin slough, slightly more present than last week. The erythema that was noted chronically has definitely gone down quite a bit. There is no odor or purulence detected. The left calf wound is measuring the same at 14 x 16. There is minimal fibrin slough, but overall looks pretty good. The periphery of the wound and the periwound area does not appear cellulitic. She does, however, have a blackened area of the third toe of her right foot at the plantar aspect. She has claw toes and there is a very thick callus with a blackened area in the center. When I examined it, there was serosanguineous drainage coming from it. A debridement was done of the left leg wound. This was a subcutaneous debridement. The tissue removed was fibrin slough and subcutaneous tissue. There was a moderate amount of bleeding that was controlled with pressure. The post-debridement measurements are unchanged. The tissue removed was fibrin slough and subcutaneous tissue at least 75% of the wound was debrided. The patient tolerated the debridement well. I did not do a debridement on the right leg. Today, I did do a selective debridement on the toe ulcer. Once I removed all the devitalized hyperkeratotic tissue, an ulcer was present that was fairly superficial, measuring 0.6 in length x 1 cm x 0.1 in depth. There was no site of an acute infection. 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 [place], [place] PROGRESS NOTE NAME: NYA MARTINEZ May [facility] #: [id number] UNIT #: [id number] ROOM: DOCTOR: PINKY BORREGO M.D. BIRTHDATE: [birth year] ASSESSMENT AND PLAN: Chronic venous stasis ulceration with continued chronic large ulcers that are stable as far as infection goes. She is on IV antibiotics. This is going to be continued by Infectious Disease until we reevaluate her later and she is going to continue with the Xeroform, Maxorb, and 3-layer wrap. She should have compression as much as she can tolerate hopefully. I hope that we can use a higher level of compression at some point in the near future, but I would like to at least continue with 3-layer for now. She does have home health. As Xeroform is not available, they can try Versatel to help prevent trauma during dressing changes. For her right ulcer of the right toe, I would use a collagen for now and silver as this area does tend to get easily contaminated with bacteria. Also, I would have her change it every other day. Follow up with us in 1 week. She does have home health who comes in. She does require a lot of care for her wound and at some point, we may need to discuss possibly a long term facility for her to help manage her wounds as it does require a lot of nursing care that may be difficult for her to handle at home by herself on the days home health cannot come in. We will to consider discussing this in the near future if we do not see any improvement. Follow up in 1 week. PINKY BORREGO MD CM:MONTY [phone] PINKY BORREGO M.D. 04/14/17 1554 interface
== END ==
LOC: WOUNDCARE 02:28
DX: I87.313 Chronic venous hypertension (idiopathic) with ulcer of bilateral lower extremity (principal); L97.822 Non-pressure chronic ulcer of other part of left lower leg with fat layer exposed; L97.811 Non-pressure chronic ulcer of other part of right lower leg limited to breakdown of skin; L97.501 Non-pressure chronic ulcer of other part of unspecified foot limited to breakdown of skin; I89.0 Lymphedema, not elsewhere classified; E66.01 Morbid (severe) obesity due to excess calories; G62.9 Polyneuropathy, unspecified; L84 Corns and callosities

== ENCOUNTER → 2017-04-19 | Outpatient (CLI) | payer MEDICARE, OTHER ==
--- NOTE | ~2017-04-19 | PR ---
[place], [place] PROGRESS NOTE NAME: NYA MARTINEZ [facility] #: [id number] UNIT #: [id number] ROOM: DOCTOR: ELMO CloudPINKY BIRTHDATE: [birth year] DOS: 04/19/2017 ROUTINE WOUND CARE FOLLOWUP SUBJECTIVE: The patient comes in for chief complaint of bilateral leg ulcerations. The wounds have been present for years now. They are venous in nature, complicated by lymphedema, morbid obesity, poorly controlled edema, chronic renal failure, recurrent infection. The patient was taken to the OR approximately a month ago for debridement at the [facility]. She had been placed on IV antibiotics that were just recently discontinued this past week by Infectious Disease. She has been using Xeroform with an alginate or Aquacel sometimes as that is what they substitute the dressing or Drawtex which she had at home and due to the fact that she has to change her dressings so frequently. She is running out of the three layer compression wrap that she was using and uses a makeshift dressing that does end up with a Coban at the end and used and had some compression, but it is not an official compression wrap. She had the wraps changed by Home Health, but it was, she said fairly short and a lot of the edema accumulated above that and now she has some blistering of the skin above where the wrap was. Otherwise, she says, she thinks her the wounds are looking better, drainage seems to be under control in general. No fevers or chills are noted and no pain. OBJECTIVE: VITAL SIGNS: She is afebrile, temperature is 98.4, pulse of 74, respirations 18, blood pressure is 98/64. WOUND EXAMINATION: The wounds on the left leg is slightly smaller in length, at 19 x 50, it is a circumferential wound, it looks much exhibit cleaner than it did last week. There is still some moderate fibrin slough. The periwound inflammation is much improved. The erythema is much better and there is no odor present. Wound #60, which is on the right calf area is 13 x 13.5. It looks pretty clean. It is superficial. There is no visible necrotic tissue. The periwound inflammation is definitely improved and there is no overt cellulitis. The wound on the toe is looking better too at 0.3 x 0.4 x 0.1. There is some surrounding callus, but it is stable at this point. Debridement was done of the left leg wound, about 40% of the wound was debrided down through subcutaneous tissue and fibrin, slough and subcutaneous tissue were removed. There was minimal to moderate bleeding that was controlled with pressure. Post-debridement measurements are unchanged. Instrument utilized was a curette. The patient tolerated the debridement well. There was a selective debridement done on the right third toe just to remove the nonviable hyperkeratotic callus around it and that was removed with a #15 blade and it was a selective debridement only and there was no bleeding. The patient tolerated the debridement well. I did drain 3 of the blisters that were filled with just plain clear serous fluid with a #15 blade. Those were drained and there was no bleeding. ASSESSMENT AND PLAN: Chronic venous ulcerations that are at this point stable, edema is poorly controlled. She said she went back to her Lasix every other day. She was taken off of her Lasix because of her kidney function. I did mention that I would like her to follow up with a kidney specialist to help manage her diuretics, so I think that would be a good thing. So, we will [place], [place] PROGRESS NOTE NAME: [facility] [id number] UNIT #: [id number] ROOM: DOCTOR: PINKY BORREGO M.D. BIRTHDATE: [birth year] continue in general with the Xeroform to protect the wounds and a secondary dressing to help absorb drainage. She has either Maxorb at home or Drawtex which is fine. We will use either one of those and then an ABD over that as well as a 3-layer compression wrap. She will follow up in the Wound Clinic in one week. She is going to have new home health agency helping her, so hopefully we can continue to keep the wound stable. The toe ulceration definitely is stable and improved from last week. We will continue with the collagen dressing and follow up in Wound Clinic in one week. PINKY BORREGO MD CM:PNTRANS [id number] PINKY BORREGO M.D. 04/19/17 1537 interface
== END ==
LOC: WOUNDCARE 02:54
DX: I87.313 Chronic venous hypertension (idiopathic) with ulcer of bilateral lower extremity (principal); L97.822 Non-pressure chronic ulcer of other part of left lower leg with fat layer exposed; L97.811 Non-pressure chronic ulcer of other part of right lower leg limited to breakdown of skin; I89.0 Lymphedema, not elsewhere classified; E66.01 Morbid (severe) obesity due to excess calories; N18.9 Chronic kidney disease, unspecified; I48.91 Unspecified atrial fibrillation

== ENCOUNTER → 2017-04-26 | Outpatient (CLI) | payer MEDICARE, OTHER ==
--- NOTE | ~2017-04-26 | PR ---
[place], [place] PROGRESS NOTE NAME: NYA MARTINEZ [facility] #: [id number] UNIT #: [id number] ROOM: DOCTOR: ELMO CloudPINKY BIRTHDATE: [birth year] DOS: 04/26/2017 SUBJECTIVE: The patient comes in with a routine wound care visit. CHIEF COMPLAINT: Chronic leg ulceration bilateral legs. HISTORY OF PRESENT ILLNESS: This is a 72-year-old female with multiple medical problems who comes in for weekly wound care visit. She has a venous leg ulcerations complicated by lymphedema, morbid obesity, chronic renal failure, uncontrolled edema, recurrent infections of the ulcers, she has been coming to the clinic for years now, she steadily had an increased wound margins for several months now. She went to the [facility] for an opinion, had an OR debridement, was placed on IV antibiotics and it seems to have kept the wound stabilized. The IV antibiotics were discontinued approximately a week to 10 days ago and she was placed on a Coban wrap, Home Health comes in to do the dressing changes; however, they do not have the Coban and they have been using a different stretch bandage, which she does not like, it is too tight for her, it is very uncomfortable. She has been trying to keep the dressings on for more than one day; however, the drainage is uncontrolled still and it causes discomfort when it is around the periwound skin. There is increased wound margins due to the epithelial tissue being denuded from large amounts of drainage. No fevers or chills are noted at this time. She also said she has a new wound on her right great toe. She had a dry thick callus area that was picked off and now is an open wound. OBJECTIVE: VITAL SIGNS: Stable. Temperature is 98, pulse of 76, respirations 18, blood pressure is 94/50. WOUND EXAMINATION: The wound is measuring 19 x 50 x 0.1. The wound itself looks fairly good; however, there is increased margins from the distally where fluid has denuded, the epithelial tissue and the wound margins are bigger. The right posterior leg is measuring slightly bigger as well at 13 x 13.5 x 0.1. There is moderate amount of fibrin slough on this one as well. The right third toe is doing better and is measuring 0.3 x 0.4 x 0.1. The right great toe has a new wound, it is 1.1 x 0.9 x 0.2. There is really no visible necrotic tissue present. A debridement was done of the left leg, first the tissue removed was fibrin slough, subcutaneous tissue and biofilm. There was moderate amount of bleeding that was controlled with pressure. The patient tolerated the debridement well, I would say about 75% of the wound was debrided. The right lower extremity was debrided as well, I would say 20% of the wound was debrided through the subcutaneous tissue, tissues removed was fibrin, slough and subcutaneous tissue. There was a moderate amount of bleeding again that was controlled with pressure as well. Post-debridement measurements are unchanged. ASSESSMENT AND PLAN: Chronic venous leg ulcerations and lymphedema that is now with increasing wound margin and she has just stopped her antibiotics just recently. She has not been on any silver dressing for a while, I would like to go back to silver for bioburden control. I think that bioburden is one of the major issues here and have her use a Vashe solution to wash with 3 times a week and the rest of the time to use normal saline. We will try the Mepitel silver [place], [place] PROGRESS NOTE NAME: [facility] [id number] UNIT #: [id number] ROOM: DOCTOR: PINKY BORREGO M.D. BIRTHDATE: [birth year] transfer, which we had a luck using for people who have large amounts of drainage. She can use ABD pad over that and have her do a 3-layer compression wrap daily. Unfortunately, the supply is what is the limiting factor. She is limited in amount of supplies, so we might have to work with what we have and hopefully try to stick to the plan if we can. I think when the plan veers off, Home Health substitutes other types of dressings, things do not work out quite as well, but we will have to do with what we can get for the patient. For the toe wounds we will use Puracol for those as it looks stable and clean. Follow up in 1 week. If things have not improved by then we may need to repeat her cultures. She was on vancomycin and ampicillin I believe, so we may have to see how she responds to topical silver and the Vashe for now. PINKY BORREGO MD CM:MONTY [id number] PINKY BORREGO M.D. 05/01/17 1255 interface
== END ==
LOC: WOUNDCARE 00:16
DX: I87.313 Chronic venous hypertension (idiopathic) with ulcer of bilateral lower extremity (principal); L97.822 Non-pressure chronic ulcer of other part of left lower leg with fat layer exposed; L97.811 Non-pressure chronic ulcer of other part of right lower leg limited to breakdown of skin; I78.0 Hereditary hemorrhagic telangiectasia; E66.01 Morbid (severe) obesity due to excess calories; N18.9 Chronic kidney disease, unspecified

== ENCOUNTER → 2017-05-03 | Outpatient (CLI) | payer MEDICARE, OTHER | LOC: WOUNDCARE 03:28 | DX: I87.313 Chronic venous hypertension (idiopathic) with ulcer of bilateral lower extremity (principal); L97.822 Non-pressure chronic ulcer of other part of left lower leg with fat layer exposed; L97.811 Non-pressure chronic ulcer of other part of right lower leg limited to breakdown of skin; S91.101D Unspecified open wound of right great toe without damage to nail, subsequent encounter; I89.0 Lymphedema, not elsewhere classified; E66.01 Morbid (severe) obesity due to excess calories; X58.XXXD Exposure to other specified factors, subsequent encounter ==

== ENCOUNTER → 2017-05-10 | Outpatient (CLI) | payer MEDICARE, OTHER | LOC: WOUNDCARE 04:24 | DX: I87.313 Chronic venous hypertension (idiopathic) with ulcer of bilateral lower extremity (principal); L97.822 Non-pressure chronic ulcer of other part of left lower leg with fat layer exposed; L97.811 Non-pressure chronic ulcer of other part of right lower leg limited to breakdown of skin; I89.0 Lymphedema, not elsewhere classified; L97.512 Non-pressure chronic ulcer of other part of right foot with fat layer exposed; N18.9 Chronic kidney disease, unspecified; E66.01 Morbid (severe) obesity due to excess calories; B96.5 Pseudomonas (aeruginosa) (mallei) (pseudomallei) as the cause of diseases classified elsewhere; Z86.14 Personal history of Methicillin resistant Staphylococcus aureus infection ==

== ENCOUNTER → 2017-05-18 | Outpatient (CLI) | payer MEDICARE, OTHER | LOC: WOUNDCARE 02:34 | DX: I87.313 Chronic venous hypertension (idiopathic) with ulcer of bilateral lower extremity (principal); L97.822 Non-pressure chronic ulcer of other part of left lower leg with fat layer exposed; L97.811 Non-pressure chronic ulcer of other part of right lower leg limited to breakdown of skin; L97.512 Non-pressure chronic ulcer of other part of right foot with fat layer exposed; I89.0 Lymphedema, not elsewhere classified; E66.01 Morbid (severe) obesity due to excess calories; L84 Corns and callosities; N18.9 Chronic kidney disease, unspecified ==

== ENCOUNTER → 2017-05-25 | Outpatient (CLI) | payer MEDICARE, OTHER | END | disposition home or self-care (01) | LOC: RAD 02:18 → WOUNDCARE 02:18 | DX: L97.512 Non-pressure chronic ulcer of other part of right foot with fat layer exposed (principal); L97.511 Non-pressure chronic ulcer of other part of right foot limited to breakdown of skin; M86.8X7 Other osteomyelitis, ankle and foot ==

== ENCOUNTER → 2017-07-05 | Outpatient (CLI) | payer MEDICARE, OTHER ==
--- NOTE | ~2017-07-05 | PR ---
[place], [place] PROGRESS NOTE NAME: NYA MARTINEZ [facility] #: [id number] UNIT #: [id number] ROOM: DOCTOR: ELMO CloudPINKY BIRTHDATE: [birth year] DOS: 07/05/2017 CHIEF COMPLAINT: Followup of bilateral multiple wounds. HISTORY OF PRESENT ILLNESS: This is 72-year-old female who is well known to the Wound Clinic for severe venous leg ulcerations and lymphedema who had a recent diagnosis of osteomyelitis of the right second toe. She was transferred to [facility] for continued wound care management, as she had severe drainage, difficulty managing her wounds at home and the wounds had continued to progress without improvement. Therefore, the patient was transferred to [facility], where she had been there before and had some improvement in her wounds at that time. She did have some laser treatments in the past, which seemed to have helped her wounds and this was the main reason for her trying to go there for wound care management. In any case, also she had a recent diagnosis of osteomyelitis of the right second toe and that was also managed at [facility]. In any case, she had been there for several weeks, had received looks like vancomycin for the osteomyelitis as well as she had amputation of the second toe. This was elected per patient. She did not have a partial amputation, but had a complete amputation of that toe. Unfortunately, the wounds; however, on her legs have not really made much improvement. They continued to drain large amounts of serous fluid. There is continued necrotic tissue, large amounts of denuded skin secondary to severe weeping wounds. She did have some debridement done there as well at least on 2 occasions and the patient states when they did try a 4-layer compression wraps; however, as soon as the wrap was removed for dressing changes, it seemed the patient states that the wounds definitely seem to look worse, so she really is not happy with the 4 layer compression wrap, so she has been transferred back home and comes here for further wound care therapy. In addition, the toe amputation site where she had surgery, still has not healed. It is open and still is not completely healed over yet and there seems to be still some exposed subcutaneous tissue noted. She has not had any fevers or chills, but continues to have a large amount of drainage. She has to change her dressings at least once a day. She was using Exoderm, which is a super absorbent dressing pad over the wounds. We had been using Xeroform before to try to protect the skin, as she had complained a lot about the skin being sore because of the dressings sticking to the wounds. However, Xeroform has been discontinued due to the fact that we were trying to keep the wounds as dry as possible. In any case, there really has been no significant change with her wounds unfortunately and she is changing the dressings at least once a day. She did have Cutimed Sorbact at home, so she was using that but she is almost out of it and that seems to help with at least removal of necrotic tissue. SOCIAL HISTORY: She is a nonsmoker, nondrinker, although has smoked in the past. PHYSICAL EXAMINATION: Temperature is 98.3, pulse is 100, respirations are 20, blood pressure is 102/50, also wanted to mention previously while she was at [facility], she did have a drop in her H and H and was transfused 2 units of blood, but it does not seem there was no mention of the reason why she has such a large drop in her hematocrit. Her wounds are the same. There is really no change in the area of affected wounds, the left leg is measuring 35 x 52 x 0.1. [place], [place] PROGRESS NOTE NAME: NYA MARTINEZ [facility] #: [id number] UNIT #: [id number] ROOM: DOCTOR: PINKY BORREGO M.D. BIRTHDATE: [birth year] There is still moderate to large amounts of necrotic tissue present. The right lower extremity wound is still the same at 30 x 46.5 x 0.1. The wounds on this leg are not as deep and definitely seems more superficial than the left leg wounds. She has a surgical wound where she has had amputation noted. It is 2.4 x 0.1 x 0.1. There is some fibrin slough present in the base of the wound as well. A debridement was done of the left leg wound. The tissue removed was fibrin, slough and subcutaneous tissue. There was moderate amount of bleeding controlled with pressure, 90% of the wound was debrided. The patient tolerated the procedure well. Post-debridement measurements are unchanged. Bleeding was controlled with pressure. ASSESSMENT AND PLAN: Chronic venous ulcerations with severe lymphedema. Unfortunately, she does not do well with the compression wraps. Ideally, the lymphedema wraps would be ideal for her; however lymphedema therapy will not see her because her wounds are too severe. In the meantime, we will use a dressing to hopefully try to keep the necrotic tissue at bay. Cutimed Sorbact has been tried in the past. She did okay with it at least temporarily so we will go ahead and try that and continue to use supra-absorbent pad over it. She needs compression. The best that she can tolerate at this time is Kerlix and Coban such we will do that for now. In addition, she did have repeat vascular studies done, which showed no significant vascular disease of the right lower extremity or left lower extremity that was repeated at the [facility]. In addition, she does have a postsurgical wound after osteomyelitis and amputation site has not healed. I would like to see if we could consider the use of hyperbaric oxygen for her based on that this wound was a surgical wound; however, it was formed due to osteomyelitis, so we will see if she perhaps may meet criteria to go into the chamber. I think this would also help her venous ulcerations with her edema and hopefully decrease the bioburden. We will have to see if we can get approval for this. Apparently, the patient reports that they did consider her for hyperbarics in the past, but was denied, as they felt that the wounds were not large enough or severe enough to warrant hyperbarics. However, we have tried several modalities of treatment for this patient and unfortunately nothing has really helped the patient. So we would like to see if this is something that we could potentially try. In the meantime, followup is in one week. [place], [place] PROGRESS NOTE [facility] [id number] UNIT #: [id number] ROOM: DOCTOR: PINKY BORREGO M.D. BIRTHDATE: [birth year] PINKY BORREGO MD CM:PNTRANS [phone] PINKY BORREGO M.D. 07/13/17 1305 interface
== END | disposition home or self-care (01) ==
LOC: WOUNDCARE 03:44
DX: T81.31XD Disruption of external operation (surgical) wound, not elsewhere classified, subsequent encounter (principal); I87.2 Venous insufficiency (chronic) (peripheral); L97.812 Non-pressure chronic ulcer of other part of right lower leg with fat layer exposed; L97.822 Non-pressure chronic ulcer of other part of left lower leg with fat layer exposed; I89.0 Lymphedema, not elsewhere classified; M86.8X7 Other osteomyelitis, ankle and foot; Z87.891 Personal history of nicotine dependence; Z89.421 Acquired absence of other right toe(s); Y83.8 Other surgical procedures as the cause of abnormal reaction of the patient, or of later complication, without mention of misadventure at the time of the procedure

== ENCOUNTER → 2017-07-12 | Outpatient (CLI) | payer MEDICARE, OTHER ==
--- NOTE | ~2017-07-12 | PR ---
[place], [place] PROGRESS NOTE NAME: NYA MARTINEZ [facility] #: [id number] UNIT #: [id number] ROOM: DOCTOR: ELMO CloudPINKY BIRTHDATE: [birth year] DOS: 07/12/2017 CHIEF COMPLAINT: Followup bilateral leg ulcerations as well as foot ulcer. HISTORY OF PRESENT ILLNESS: This is a 72-year-old female with a history of chronic ulcerations of bilateral leg secondary to venous insufficiency and severe lymphedema, which is uncontrolled, morbid obesity, chronic renal failure who has been coming to the Wound Clinic for several years now without any improvement. The wound is actually been steadily getting worse the past year and a half with recurrent bouts of the wound infection, cellulitis. She has had consultations at the [facility] and recent inpatient stay at [facility] for [facility] care. She had a recent osteomyelitis of the third toe of the right foot and has undergone amputation of this area. The entire toe has been removed. She comes in today stating that none of the dressings that we had recommended have been provided to her. She has home health coming in, Cutimed Sorbact was recommended and subsequent dry absorbent dressing for secondary purposes. She did not get the Cutimed, she only has Exoderm and has been using Kerlix and Coban once for edema control. She has to change the dressings once a day at least possibly twice a day, if it still straining quite a bit. There has been increased denuded areas due to excessive drainage, some discomfort associated with that. No fevers or chills. She in general did complain of not feeling well for the past few days. Apparently, had an episode of what she calls indigestion couple days ago. She does not have it today. She did discuss this with her primary care physician who is aware of it. In any case, no fevers or chills are noted. We did go over some of the previous wound care treatments that we had to try and decipher what helps her. She has been through practically every type of wound care product that we can recommend. We did have approximately 2 months ago at a trial of prednisone. She said it did seem to help slow down the drainage a bit as well as erythema around the legs and she did feel better on it. Also, I did discuss how important compression is and she says she really does not like compression. She thinks it irritates her skin; however, she does have several boxes of Setopress wraps available to her that she has not been used yet. PHYSICAL EXAMINATION: VITAL SIGNS: She is afebrile, temperature is 98.4, pulse is 90, respirations 20, blood pressure is 98/52. EXTREMITIES: Left lower leg wounds are essentially the same, 34 x 52.5 x 0.1. There seems to be slightly less fibrin slough than last week, she did have a debridement last week, but there is a lot of denuded skin weeping areas around the original wound that is raw and erythematous and weeping clear serous fluid. There is really no odor. Edema is uncontrolled. Her right lower extremity wound is the same with no change at 30 x 46.5 x 0.1. There is fibrin slough present, it is not as deep as the wound appears to be less deep than the left leg wound; however, there is still quite a bit of beating on good skin secondary to serous fluid trying to weep through good areas. There is lots of denuded skin as well as on this leg as well. Her right third toe actually area looks much improved and is starting to heal over. At this point, it is measuring 1 x 0.1 x 0.1, but it looks good. Debridement of the left lower leg wound was done. The tissue removed was fibrin, slough and subcutaneous tissue. This was [place], [place] PROGRESS NOTE NAME: NYA MARTINEZ [facility] #: [id number] UNIT #: [id number] ROOM: DOCTOR: PINKY BORREGO M.D. BIRTHDATE: [birth year] accomplished with a curette. There was minimal to moderate bleeding controlled with pressure. Cetacaine spray was used for topical anesthesia. The patient tolerated the debridement well only about 40% of the wound was debrided. ASSESSMENT AND PLAN: Chronic lymphedema, venous insufficiency, ulcerations. No improvement. The patient is not really compliant with compression. I explained how important it is to her treatment and I hope that she is willing to try a better compression system than the Coban and to try and tolerated as much as she can, so she is agreeable to trying the Setopress bandages that she has at home. She can wash these bandages as well and can change them once or even twice a day if needed depending on the drainage. The Cutimed that we had recommended did not ever come due to the continued fibrin slough, we will go ahead and try TheraHoney sheet. It has been a while since we have tried TheraHoney and it being on a sheet, might help keep it in place and avoid dripping on two other areas, also with the use of Calazime to all the denuded areas on the periwound area. Also, we will go ahead and repeat that trial prednisone 20 mg a day for 7 days and see how she does with this. She seems to think that it helped last time, so we will go ahead and give her a short trial and perhaps continued at 10 mg for a while and see how she does with that. In the meantime, we will go ahead with any type of an absorbent dressing that she has available to her. We have Maxorb here will use that, but she has Exu-Dry at home Dry-Yung is fine. She continues to use Kerlix and Setopress for compression, but I would try at least see if we can obtain 40 mmHg. I did explain to her that is what I would recommend. Followup is in one week. PINKY BORREGO MD CM:MONTY [phone] PINKY BORREGO M.D. 07/13/17 1327 interface
== END | disposition home or self-care (01) ==
LOC: WOUNDCARE 01:41
DX: T81.31XD Disruption of external operation (surgical) wound, not elsewhere classified, subsequent encounter (principal); I87.2 Venous insufficiency (chronic) (peripheral); L97.812 Non-pressure chronic ulcer of other part of right lower leg with fat layer exposed; L97.822 Non-pressure chronic ulcer of other part of left lower leg with fat layer exposed; E66.01 Morbid (severe) obesity due to excess calories; I89.0 Lymphedema, not elsewhere classified; M86.8X7 Other osteomyelitis, ankle and foot; N18.9 Chronic kidney disease, unspecified; Y83.8 Other surgical procedures as the cause of abnormal reaction of the patient, or of later complication, without mention of misadventure at the time of the procedure

== ENCOUNTER 2017-07-27 09:09 | Inpatient (IN) | payer MEDICARE, OTHER ==
[2017-07-27] VITALS (11 sets, daily range): BP systolic 95–124; BP diastolic 60–97
[~2017-07-27] VITALS: Ht 170.1 cm; Wt 124.8 kg
--- NOTE | ~2017-07-27 | CON ---
[place], [place] REPORT OF CONSULTATION NAME[facility]: [id number] UNIT #: [id number] ROOM: [facility] [place] DOCTOR: ERNESTO SAAVEDRA MD BIRTHDATE: [birth year] DOS: 07/31/2017 HISTORY OF PRESENT ILLNESS: The patient is a 72-year-old who has presented with multiple medical issues among which has been her diarrhea and not feeling well and shivering sensation and concern with nausea, epigastric distress. The patient, however, was admitted through Emergency Room, was found to have INR of 1.6. PT and PTT of 17 and 35 respectively. Chest x-ray was done, chronic thoracic changes, lactic acid was 1.54, BUN and creatinine 127/7.8 with GFR of 7. Potassium of 7.7. Sodium of 129. Liver function tests were normal. C-reactive protein 10, troponin elevation. CBC: 20. White blood cell 29, H and H of 9 and 30, platelets of 375. Basic metabolic panel was readdressed and reconfirmed. Abnormalities have been addressed by Nephrology. The patient has been preplanned for dialysis catheter tomorrow morning and appropriate corrections have been undertaken. The patient does not feel toxic at the present time. PAST MEDICAL HISTORY: Associated chronic kidney disease, COPD, coronary artery disease, C. diff colitis history which has been this time negative, atrial fibrillation, morbid obesity, protein-calorie malnutrition, cellulitis of lower extremities. PAST SURGICAL HISTORY: Appendectomy, cholecystectomy, amputation of toe, right foot. SOCIAL HISTORY: Past smoker. Nonalcohol consumer. FAMILY HISTORY: Noncontributory. ALLERGIES: NAPROXEN, STEROID, IODINE. MEDICATIONS: List has been reviewed including warfarin. REVIEW OF SYSTEMS: HEENT: Denies double vision, blurred vision. RESPIRATORY: Denies shortness of breath. CARDIOVASCULAR: Denies chest pain. DIGESTIVE SYSTEM: Diarrhea, epigastric distress, abdominal pain and nausea. PHYSICAL EXAMINATION: VITAL SIGNS: Stable. HEENT: Head normocephalic, nontraumatic. Mouth and buccal mucosa benign. NECK: Supple, no thyromegaly, no cervical lymphadenopathy. CHEST: Symmetric anatomy, equal expansion. No wheeze, no rhonchi. HEART: Normal sinus rhythm. No murmur. ABDOMEN: Soft. No hepato-organomegaly. Bowel sounds present. Obese. EXTREMITIES: Cellulitis of lower extremities and is wrapped. NEUROLOGIC: Alert, oriented to time, place and person. IMPRESSION: Acute on chronic renal failure, sepsis, leukocytosis, anemia, guaiac positivity, history of diarrhea, nausea, nausea could be multifactorial [place], [place] REPORT OF CONSULTATION NAME: NYA MARTINEZ UNIT #: [id number] ROOM: [facility] [place] DOCTOR: KERI GAMINO,ERNESTO BIRTHDATE: [birth year] in this case. History of possible colitis, history of C. diff, lower extremity cellulitis, atrial fibrillation, electrolyte imbalance, hyperkalemia particularly; all have been addressed. Hyponatremia has been addressed. PLAN AND DISCUSSION: Labs reviewed. Records reviewed. Wound cultures have been done. Comprehensive metabolic panel shows improvement in BUN and creatinine to 103 and 7.4. GFR still remains about 6. Electrolytes have been corrected. Liver function tests are normal. CBC differential, H and H of 7 and 24, transfusion in plan. Blood culture, urine culture negative. Stool cultures negative. First order of management in this case is attention to renal status dialysis and clinical reassessment. GI service will stand by for further stabilization and dialysis. ERNESTO SAAVEDRA MD CM:CONSTR:REPORT OF CONSULTATION 50 07/31/172119 interface
--- NOTE | ~2017-07-27 | PR ---
[place], [place] PROGRESS NOTE NAME: NYA MARTINEZ [facility] #: [id number] UNIT #: [id number] ROOM: [facility] DOCTOR: HANSA KENNEY MD BIRTHDATE: [birth year] DOS: 07/29/2017 SUBJECTIVE: The patient was seen and examined. She is awake and alert. She denies shortness of breath. She was on room air. She was tolerating her diet. She apparently has been resistant to dialysis. She remains critically ill. OBJECTIVE: VITAL SIGNS: Temperature is 98.1, pulse 95, respirations 20, blood pressure 91/34. GENERAL: She is awake and alert, comfortable, no acute distress. HEENT: Shows no JVD. Sclerae are anicteric. LUNGS: Diminished breath sounds. No wheeze. HEART: Normal S1, S2. No rub, thrill or gallop. ABDOMEN: Soft, nontender. There is no organomegaly or rigidity. EXTREMITIES: Had 1-2+ edema. Both legs were wrapped. SKIN: Showed otherwise no overt rash. NEUROLOGIC: Awake and alert and following commands. LABORATORY DATA: Hemoglobin 6.8, white count of 12.6, platelets of 237. Sodium 138, potassium 5.2, CO2 24, BUN 118, creatinine 8.1, calcium 7.8, phosphorus 7.3, albumin of 1.6. ASSESSMENT AND PLAN: 1. Acute on chronic kidney disease. I am not clear what the patient's baseline creatinine is, but she now, may have what appears to be, new end-stage renal disease. She does not have any overt uremic symptoms. Her volume status and electrolytes appear to be acceptable. I had a fairly blunt conversation with the patient, stated that she will need dialysis and this is becoming very dangerous if she continues to be resistant to this. I explained to her how hemodialysis works and she understood it and is willing to proceed. I will ask the surgeon to place a tunneled dialysis catheter and we will start dialysis as soon as that has been placed. At this point, her IV fluids can be discontinued. I would recommend holding her Coumadin with anticipation of the dialysis catheter to be placed. 2. Anemia. The patient's H and H has been dropping. I would recommend transfusing. She likely will be requiring erythropoietin stimulating agents with dialysis once started. She possibly will receive an IV iron load at some point as well. 3. Peripheral vascular disease with lower extremity wounds. Surgery is following for wound care. 4. Hyperphosphatemia. PhosLo will be started with meals. [place], [place] PROGRESS NOTE [facility]: [facility] [id number] UNIT #: [id number] ROOM: [facility] DOCTOR: HANSA KENNEY MD BIRTHDATE: [birth year] HANSA KENNEY MD CM:PNTRANS [phone] HANSA KENNEY MD 07/29/17 221 interface
--- NOTE | ~2017-07-27 | PR ---
[place], [place] PROGRESS NOTE NAME: NYA MARTINEZ [facility] #: [id number] UNIT #: [id number] ROOM: [facility]- DOCTOR: HANSA KENNEY MD BIRTHDATE: [birth year] DOS: 07/30/2017 SUBJECTIVE: The patient was seen and examined. She remains in the ICU. She is awake and alert. She states to me she feels better. She denies shortness of breath. Denies nausea or vomiting. She ate all her dinner. She continues to be agreeable to dialysis and it seems there are plans to get a dialysis catheter placed tomorrow. PHYSICAL EXAMINATION: VITAL SIGNS: Temperature is 97.5, pulse 89, respiratory rate 20, blood pressures have been running in the 80s-90s systolic. GENERAL: She is alert, awake, oriented x 3, no acute distress. HEENT: Shows no JVD. LUNGS: Diminished breath sounds. No wheeze. HEART: Normal S1, S2. No rub, thrill or gallop. ABDOMEN: Soft and nontender. There is no organomegaly or rigidity, rebound or guarding. There is no CVA tenderness. EXTREMITIES: Had to 2-3+ edema, both lower extremities were wrapped. NEUROLOGIC: Showed no focal findings. LABORATORY DATA: Hemoglobin 7.1, white count 7.5, platelets of 217. BUN 107, creatinine 7.6, sodium 137, potassium 4.3, CO2 of 28, calcium 7.5, phosphorus 6.3, albumin of 1.5. ASSESSMENT AND PLAN: 1. Acute on chronic kidney disease with questionable new end-stage renal disease. I am not clear of the patient's baseline creatinine. The patient is agreeable to dialysis. Dialysis catheter will be placed tomorrow, apparently, by surgery. Once her access has been obtained, dialysis will be planned and likely daily for a few days. She will need outpatient dialysis arranged for depending on her disposition. Her blood pressures have been somewhat marginal. We will attempt fluid removal as tolerated. IV fluid should be discontinued at this time. 2. Anemia. Transfuse as per the primary service. We will administer erythropoietin stimulating agents with dialysis. 3. Peripheral vascular disease, lower extremity wounds. Surgery is following for wound care. 4. Hyperphosphatemia. PhosLo has been started with meals. [place], [place] PROGRESS NOTE NAME: NYA MARTINEZ UNIT #: [id number] ROOM: [facility] DOCTOR: ANNE MARIE GAMINO,HANSA Kerr BIRTHDATE: [birth year] HANSA KENNEY MD CM:PNTRANS [phone] HANSA KENNEY MD 07/30/17 2345 interface
[~2017-07-27 09:09] MED LIST changes: +VITAMIN C1000 M5 PO; -VITAMIN C500 MG PO; +VITAMIN D5000 UNIT PO
--- NOTE | 2017-07-27 09:20 | NUR ---
PT HAS DRESSINGS NOTED TO BLE FOR WOUND THAT ARE BEING CARED FOR AT THE WOUND CARE CLINIC. PT STATES THAT SHE "WILL NOT" ALLOW RN TO ASSESS WOUND FURTHER.
[2017-07-27 10:26] LABS: HEMATOCRIT 30.9 % (37.0-47.0); HEMOGLOBIN 9.5 g/dl (12.0-16.0); MEAN CORPUSCULAR HGB 25.2 pg (27.0-31.0); MEAN CORPUSCULAR HGB CONC 30.7 g/dl (33.0-37.0); MEAN PLATELET VOLUME 8.7 fl (9.6-12.3); PLATELET COUNT AUTOMATED 375 10*3/uL (130-400); RED BLOOD COUNT 3.77 10*6/uL (4.10-5.10); WHITE BLOOD COUNT 29.2 10*3/uL (4.8-10.8)
[2017-07-27 10:35] LABS: ACT PARTIAL THROMBO TIME 35.5 SECONDS (20.8-31.5); INTERNATIONAL NORM RATIO 1.6 (2.0-3.5)
[2017-07-27 10:42] LABS: ALBUMIN 2.2 gm/dl (3.1-4.5); ALKALINE PHOSPHATASE 99 U/L (45-117); BUN 127 mg/dl (7-24); CHLORIDE 100 mmol/L (98-107); CKMB 1.2 ng/ml (0.5-3.6); CPK 37 U/L (26-192); CREATININE 7.18 mg/dL (0.55-1.02); LIPASE 391 U/L (73-393); MAGNESIUM 1.8 mg/dL (1.5-2.1); SGOT/AST 11 IU/L (3-35); SGPT/ALT 17 U/L (12-78); SODIUM 129 mmol/L (136-145); TOTAL PROTEIN 8.7 gm/dL (6.4-8.2)
[2017-07-27 10:45] LABS: POTASSIUM 7.7 mmol/L (3.5-5.1); TROPONIN I < 0.015 ng/ml (<0.045)
[2017-07-27 10:47] LABS: PLATELET SUFFICIENCY NORMAL (NORMAL); POLYCHROMASIA SLIGHT; ROULEAUX MODERATE; TOTAL CELLS COUNTED 100 #CELLS
--- NOTE | 2017-07-27 10:50 | NUR ---
PT HAD EMESIS X 1 OF 100 CC OF [place] MUCOUS. DR JOLLY NOTIFIED. SEE NEW ORDERS.
--- NOTE | 2017-07-27 11:30 | NUR ---
ZOFRAN EFFECTIVE. PT STATES THAT NAUSEA "HAS SUBSIDED" AT THIS TIME. WILL CONTINUE TO MONITOR.
--- NOTE | 2017-07-27 12:15 | NUR ---
PT C/O NAUSE AGAIN AT THIS TIME. DR NOTIFIED. SEE NEW ORDERS.
--- NOTE | 2017-07-27 12:28 | NUR ---
PT MEDICATED FOR NAUSEA. WILL CONTINUE TO MONITOR.
--- NOTE | 2017-07-27 13:00 | NUR ---
PT STATES THAT PHENERGAN WAS EFFECTIVE AT THIS TIME. PT SITTING IN BED TALKING WITH FAMILY. WILL CONTINUE TO MONITOR.
--- NOTE | 2017-07-27 13:44 | NUR ---
FLAGYL DOSE HAS INFUSED, ADMISSION STILL PENDING.
[2017-07-27 14:26] LABS: CREATININE 7.3 mg/dL (0.55-1.02)
[2017-07-27 14:30] LABS: POTASSIUM 7.2 mmol/L (3.5-5.1)
--- NOTE | 2017-07-27 14:31 | NUR ---
SPOKE WITH DR. GOMEZ REGARDING NEW CONSULT. HE STATED HE WILL STATED SEE THE PATIENT LATER TODAY FOR BLE WOUNDS.
--- NOTE | 2017-07-27 14:45 | NUR ---
DR OMAR JOLLY ABOUT PT'T CRITICAL LAB RESULTS AT THIS TIME. ALSO NOTIFIED DR JOLLY ABOUT PT'S RECENT EPISODE OF N/V WELL BLADDER SCAN RESULTS. DR JOLLY STATES THAT SHE WILL BE PUTTING IN NEW ORDERS AND THIS RN WILL INITIATE IV FLUIDS WELL ADMINISTER ZOFRAN FOR NAUSEA.
--- NOTE | 2017-07-27 17:30 | NUR ---
A 72, admitted to [facility], under the services of KATHY Hamlin DO with a diagnosis of SEPSIS,COLITIS. Chief complaint is DIARRHEA, VOMITING. Patient arrived via wheel chair from ER. Monitor applied. Initial assessment completed. Vital signs taken and recorded. KATHY HAMLIN DO notified of admission to the unit. Orders received. See assessment for past medical history, medications and allergies. Patient and/or family oriented to unit. [facility] visitation policy reviewed. Clothing/patient valuable form completed. STEPHON RICHARD
[2017-07-27] MEDS ORDERED: GERI-KOT8.6 MG PO (18:34)
--- NOTE | 2017-07-27 18:56 | NUR ---
PT REFUSED ORDERED DRESSING CHANGE, DRSG APPLIED ACCORDING TO PTS WISHES DR MEDINA HERE AND EXAMINED WOUNDS
--- NOTE | 2017-07-27 20:05 | NUR ---
MEDICATED WITH TYLENOL PER PRN ORDER FOR C/O LEG PAIN.
[2017-07-27 21:39] LABS: CREATININE 7.69 mg/dL (0.55-1.02)
[2017-07-27 21:48] LABS: POTASSIUM 6.8 mmol/L (3.5-5.1)
--- NOTE | 2017-07-27 22:00 | NUR ---
TYLENOL EFFECTIVE FOR PAIN.
--- NOTE | 2017-07-27 22:50 | NUR ---
DR MCKEON UPDATED ON LAB RESULTS. NO NEW ORDERS AT THIS APPLE.
[2017-07-27 22:58] LABS: BILIRUBIN NEGATIVE (NEGATIVE); BLOOD 3+ (NEGATIVE); CLARITY SL CLOUDY (CLEAR); COLOR YELLOW (YELLOW); GLUCOSE NEGATIVE (NEGATIVE); KETONE TRACE (NEGATIVE); LEUKO ESTERASE 1+ (NEGATIVE); NITRITE NEGATIVE (NEGATIVE); SPECIFIC GRAVITY 1.025 (1.005-1.030); UROBILINOGEN 0.2 E.U./dl (0.2-1.0)
[2017-07-27 23:14] LABS: BACTERIA TRACE; CALCIUM OXALATE CRYSTALS 1+; EPITHELIAL CELLS 25-30; RBC TNTC rbc/hpf (0-2)
[2017-07-28] VITALS: BP 97/48
[2017-07-28 04:00] VITALS: BP 106/53
[2017-07-28 05:33] LABS: MEAN CELL VOLUME 83.4 fl (81.0-99.0); MEAN CORPUSCULAR HGB 25.4 pg (27.0-31.0); MEAN CORPUSCULAR HGB CONC 30.5 g/dl (33.0-37.0); PLATELET COUNT AUTOMATED 277 10*3/uL (130-400); RED BLOOD COUNT 2.83 10*6/uL (4.10-5.10); RED CELL DISTRI WIDTH 23.2 % (0-14.5); WHITE BLOOD COUNT 25.1 10*3/uL (4.8-10.8)
[2017-07-28 05:35] LABS: HEMATOCRIT 23.6 % (37.0-47.0); HEMOGLOBIN 7.2 g/dl (12.0-16.0)
[2017-07-28 05:42] LABS: INTERNATIONAL NORM RATIO 1.7 (2.0-3.5)
[2017-07-28 05:43] LABS: ALBUMIN 1.8 gm/dl (3.1-4.5); CREATININE 7.81 mg/dL (0.55-1.02); MAGNESIUM 1.7 mg/dL (1.5-2.1)
[2017-07-28 05:49] LABS: PHOSPHOROUS 6.9 mg/dL (2.5-4.9)
[2017-07-28 05:55] LABS: THYROID STIM HORMONE (HS) 3.36 uIU/ml (0.358-4.75)
[2017-07-28 06:06] LABS: POTASSIUM 5.5 mmol/L (3.5-5.1)
[2017-07-28 06:19] LABS: TOTAL CELLS COUNTED 100 #CELLS
[2017-07-28 06:20] LABS: PLATELET SUFFICIENCY NORMAL (NORMAL); POLYCHROMASIA SLIGHT
[2017-07-28 08:00] VITALS: BP 90/50
[2017-07-28 08:22] LABS: VITAMIN D, 25-HYDROXY 28.8 ng/mL (30-100)
[2017-07-28 12:00] VITALS: BP 91/47
--- NOTE | 2017-07-28 13:47 | NUR ---
MEDICATED WITH PRN ZOFRAN PER ORDER. PATIENT HAD CLEAR EMESIS.
[2017-07-28 16:00] VITALS: BP 94/52
[2017-07-28 20:00] VITALS: BP 102/48
--- NOTE | 2017-07-28 20:51 | NUR ---
MEDICATED WITH PRN TYLENOL PER ORDER AND REQUEST.
[2017-07-29] VITALS: BP 90/30
--- NOTE | 2017-07-29 | NUR ---
ASSISTED TO USE BEDPAN FOR SMALL AMOUNT OF BROWN DIARRHEA.
[2017-07-29 04:00] VITALS: BP 91/31
[2017-07-29 04:34] LABS: BASO % 0.1 % (0.0-1.0); EOS # 0.2 10*3/uL (0.0-0.4); EOS % 1.6 % (1.0-4.0); HEMATOCRIT 22.1 % (37.0-47.0); HEMOGLOBIN 6.8 g/dl (12.0-16.0); LYMPH # 0.7 10*3/uL (1.3-4.4); LYMPH % 5.6 % (27.0-41.0); MEAN CELL VOLUME 82.8 fl (81.0-99.0); MEAN CORPUSCULAR HGB 25.5 pg (27.0-31.0); MEAN CORPUSCULAR HGB CONC 30.8 g/dl (33.0-37.0); MONO # 0.8 10*3/uL (0.1-1.0); MONO % 5.9 % (3.0-9.0); NEUT # 10.9 10*3/uL (2.3-7.9); NEUT % 86.4 % (47.0-73.0); PLATELET COUNT AUTOMATED 237 10*3/uL (130-400); RED BLOOD COUNT 2.67 10*6/uL (4.10-5.10); RED CELL DISTRI WIDTH 23.3 % (0-14.5); WHITE BLOOD COUNT 12.6 10*3/uL (4.8-10.8)
[2017-07-29 04:43] LABS: INTERNATIONAL NORM RATIO 1.9 (2.0-3.5)
--- NOTE | 2017-07-29 04:49 | NUR ---
MEDICATED WITH IV ZOFRAN ORDERED FOR C/O NAUSEA.
[2017-07-29 05:02] LABS: ALBUMIN 1.6 gm/dl (3.1-4.5); CREATININE 8.14 mg/dL (0.55-1.02); PHOSPHOROUS 7.7 mg/dL (2.5-4.9); POTASSIUM 5.2 mmol/L (3.5-5.1)
--- NOTE | 2017-07-29 06:10 | NUR ---
MEDICATION SOMEWHAT EFFECTIVE FOR NAUSEA AT THIS POINT.
[2017-07-29 08:00] VITALS: BP 108/57
[2017-07-29 12:00] VITALS: BP 91/34
--- NOTE | 2017-07-29 13:55 | NUR ---
DR KENNEY SPOKE WITH DR GIORDANO CONCERNING DIALYSIS CATHETER, MONDAY OR
--- NOTE | 2017-07-29 15:35 | NUR ---
BLOOD TRANSFUSION STARTED PT CONTINUES TO REFUSES TO GET OOB AND SIT IN RECLINER
[2017-07-29 16:00] VITALS: BP 100/45
--- NOTE | 2017-07-29 18:47 | NUR ---
LEG DRESSING HAVE SATURATED THRU ALL LEG COVERINGS, DRSGS CHANGED, BED BATH DONE, STOOL FOR OB SENT, BLOOD TRANSFUSION COMPLETED, PT "YEASTY"IN SKIN FOLDS, RESIDENT UPDATED
[2017-07-29 20:00] VITALS: BP 88/59
[2017-07-30] VITALS: BP 96/43
[2017-07-30 04:00] VITALS: BP 81/37
[2017-07-30 05:15] LABS: BASO % 0.1 % (0.0-1.0); EOS # 0.4 10*3/uL (0.0-0.4); EOS % 4.6 % (1.0-4.0); HEMATOCRIT 22.6 % (37.0-47.0); HEMOGLOBIN 7.1 g/dl (12.0-16.0); LYMPH # 0.8 10*3/uL (1.3-4.4); LYMPH % 10.9 % (27.0-41.0); MEAN CELL VOLUME 83.4 fl (81.0-99.0); MEAN CORPUSCULAR HGB 26.2 pg (27.0-31.0); MEAN CORPUSCULAR HGB CONC 31.4 g/dl (33.0-37.0); MEAN PLATELET VOLUME 8.7 fl (9.6-12.3); MONO # 0.7 10*3/uL (0.1-1.0); MONO % 8.9 % (3.0-9.0); NEUT # 5.7 10*3/uL (2.3-7.9); NEUT % 75.1 % (47.0-73.0); PLATELET COUNT AUTOMATED 217 10*3/uL (130-400); RED BLOOD COUNT 2.71 10*6/uL (4.10-5.10); RED CELL DISTRI WIDTH 23.3 % (0-14.5); WHITE BLOOD COUNT 7.5 10*3/uL (4.8-10.8)
[2017-07-30 05:24] LABS: INTERNATIONAL NORM RATIO 1.9 (2.0-3.5)
[2017-07-30 05:44] LABS: ALBUMIN 1.5 gm/dl (3.1-4.5); CREATININE 7.58 mg/dL (0.55-1.02); PHOSPHOROUS 6.3 mg/dL (2.5-4.9); POTASSIUM 4.3 mmol/L (3.5-5.1)
[2017-07-30 08:00] VITALS: BP 98/62
--- NOTE | 2017-07-30 09:06 | NUR ---
TO BSC FOR BM, THEN TO RECLINER
[2017-07-30 12:00] VITALS: BP 91/46
[2017-07-30 16:00] VITALS: BP 94/52
[2017-07-30 20:00] VITALS: BP 88/52
--- NOTE | 2017-07-30 20:22 | NUR ---
PT. RESTING IN BED WATCHING TV. HEP LOCK IN RAN ASYMPT. LUNGS DIMINISHED BILAT, PULSE OX 94% ON RA. ABDOMEN SOFTLY DISTENDED AND NORMO, OBESE. BELLA CATHETER DRAINING A PALE REE URINE. DRESSINGS BILAT TO LOWER LEGS INTACT. RESP. EASY AND REG NO DISTRESS. KONSTANTIN POTTER, RN
--- NOTE | 2017-07-30 22:03 | NUR ---
PT. REFUSED BATH AT THIS TIME.
[2017-07-31] VITALS: BP 88/48
[2017-07-31 04:00] VITALS: BP 93/55
[2017-07-31 05:09] LABS: BASO % 0.3 % (0.0-1.0); EOS # 0.4 10*3/uL (0.0-0.4); EOS % 6.1 % (1.0-4.0); HEMATOCRIT 24.1 % (37.0-47.0); HEMOGLOBIN 7.3 g/dl (12.0-16.0); LYMPH # 0.8 10*3/uL (1.3-4.4); LYMPH % 11.8 % (27.0-41.0); MEAN CELL VOLUME 85.2 fl (81.0-99.0); MEAN CORPUSCULAR HGB 25.8 pg (27.0-31.0); MEAN CORPUSCULAR HGB CONC 30.3 g/dl (33.0-37.0); MEAN PLATELET VOLUME 8.9 fl (9.6-12.3); MONO # 0.6 10*3/uL (0.1-1.0); NEUT # 4.6 10*3/uL (2.3-7.9); NEUT % 71.5 % (47.0-73.0); PLATELET COUNT AUTOMATED 249 10*3/uL (130-400); RED BLOOD COUNT 2.83 10*6/uL (4.10-5.10); RED CELL DISTRI WIDTH 23.1 % (0-14.5); WHITE BLOOD COUNT 6.4 10*3/uL (4.8-10.8)
[2017-07-31 05:36] LABS: INTERNATIONAL NORM RATIO 1.7 (2.0-3.5)
[2017-07-31 05:39] LABS: ALBUMIN 1.5 gm/dl (3.1-4.5); CREATININE 7.4 mg/dL (0.55-1.02); POTASSIUM 3.9 mmol/L (3.5-5.1); TOTAL PROTEIN 6.2 gm/dL (6.4-8.2)
[2017-07-31 08:00] VITALS: BP 91/50
[2017-07-31 12:00] VITALS: BP 96/38
--- NOTE | 2017-07-31 12:33 | NUR ---
dr young notified of consult
[2017-07-31 16:00] VITALS: BP 110/51
--- NOTE | 2017-07-31 19:56 | NUR ---
PT REFUSED BED BATH OFFERED.
[2017-07-31 20:00] VITALS: BP 80/50
--- NOTE | 2017-07-31 20:05 | NUR ---
PT. RESTING IN BED. DR. SAAVEDRA IN TO SEE PT. DISCUSSED CARE. HEP LOCI IN RA ASYMPT. LUNGS DIMINISHED BILAT, PULSE OX 92-94% IN RA. ABDOMEN SOFTLY DISTENDED AND NORMO, OBESE. EDEMA VS OBESITY. BLE LOWER LEG DRESSINGS INTACT, CHANGED PRIOR TO SHIFT. BELLA CATHETER DRAINING A CLEAR YELLOW URINE. ZOFRAN GIVEN AT 1940 FOR COMPLAINTS OF NAUSEA, PT. STATES EFFECTIVE. KONSTANTIN POTTER RN
[2017-08-01] VITALS (12 sets, daily range): BP systolic 85–103; BP diastolic 38–68
[2017-08-01 04:36] LABS: INTERNATIONAL NORM RATIO 1.7 (2.0-3.5)
--- NOTE | 2017-08-01 08:10 | NUR ---
1ST UNIT FFP INFUSING.
[2017-08-01 08:33] LABS: BASO % 0.2 % (0.0-1.0); EOS # 0.3 10*3/uL (0.0-0.4); EOS % 5.1 % (1.0-4.0); HEMOGLOBIN 7.2 g/dl (12.0-16.0); LYMPH # 0.9 10*3/uL (1.3-4.4); LYMPH % 15.1 % (27.0-41.0); MEAN CELL VOLUME 85.7 fl (81.0-99.0); MEAN CORPUSCULAR HGB 25.7 pg (27.0-31.0); MEAN PLATELET VOLUME 8.1 fl (9.6-12.3); MONO # 0.6 10*3/uL (0.1-1.0); MONO % 9.4 % (3.0-9.0); NEUT # 4.2 10*3/uL (2.3-7.9); NEUT % 69.7 % (47.0-73.0); PLATELET COUNT AUTOMATED 206 10*3/uL (130-400); RED CELL DISTRI WIDTH 23.4 % (0-14.5); WHITE BLOOD COUNT 6.1 10*3/uL (4.8-10.8)
[2017-08-01 08:45] LABS: CREATININE 7.14 mg/dL (0.55-1.02); POTASSIUM 4.2 mmol/L (3.5-5.1)
--- NOTE | 2017-08-01 08:50 | NUR ---
PATIENT TAKEN TO SURGERY 2ND UNIT OF FFP WAS UP AND RUNNING.
--- NOTE | 2017-08-01 11:40 | NUR ---
NACK FROM SURGERY
--- NOTE | 2017-08-01 13:31 | NUR ---
PATIENT GETTING 1ST DIALYSIS TREATMENT.
[2017-08-01 14:27] LABS: BASO % 0.2 % (0.0-1.0); EOS # 0.2 10*3/uL (0.0-0.4); HEMATOCRIT 24.7 % (37.0-47.0); HEMOGLOBIN 7.4 g/dl (12.0-16.0); LYMPH # 0.8 10*3/uL (1.3-4.4); LYMPH % 13.2 % (27.0-41.0); MEAN CELL VOLUME 87.3 fl (81.0-99.0); MEAN CORPUSCULAR HGB 26.1 pg (27.0-31.0); MEAN PLATELET VOLUME 8.7 fl (9.6-12.3); MONO # 0.4 10*3/uL (0.1-1.0); MONO % 6.7 % (3.0-9.0); NEUT # 4.3 10*3/uL (2.3-7.9); NEUT % 75.5 % (47.0-73.0); PLATELET COUNT AUTOMATED 198 10*3/uL (130-400); RED BLOOD COUNT 2.83 10*6/uL (4.10-5.10); RED CELL DISTRI WIDTH 23.3 % (0-14.5); WHITE BLOOD COUNT 5.7 10*3/uL (4.8-10.8)
--- NOTE | 2017-08-01 14:36 | NUR ---
Pt refused for me to undress wounds patient wanted the wound care physician present so she didn't have to do it twice. The nurse caring for the patient stated that the wound care physician saw the patient a couple days ago and made recommendation but the patient refused those recommendation.
[2017-08-01 14:37] LABS: ALBUMIN 1.6 gm/dl (3.1-4.5); CREATININE 5.74 mg/dL (0.55-1.02); PHOSPHOROUS 4.1 mg/dL (2.5-4.9); POTASSIUM 3.6 mmol/L (3.5-5.1)
--- NOTE | 2017-08-01 20:51 | NUR ---
PT. RESTING IN BED. RIJ TEMP DIALYSIS CATHETER INTACT. HEP LOCK x2 IN RA ASYMPT. LUNGS DIMINISHED BUT CLEAR BILAT, PULSE OX 94% ON RA. ABDOMEN SOFTLY DISTENDED AND NORMO, OBESE. BILAT LOWER LEG DRESSINGS INTACT. PT. REFUSING BATH AT THIS TIME. EDEMA VS OBESITY. RESP. EASY AND REG, NO DISTRESS. KONSTANTIN POTTER RN
[2017-08-02] VITALS: BP 90/54
[2017-08-02 03:59] VITALS: BP 98/57
[2017-08-02 04:58] LABS: BASO % 0.3 % (0.0-1.0); EOS # 0.3 10*3/uL (0.0-0.4); EOS % 4.9 % (1.0-4.0); HEMOGLOBIN 7.2 g/dl (12.0-16.0); LYMPH # 0.7 10*3/uL (1.3-4.4); LYMPH % 12.5 % (27.0-41.0); MEAN CELL VOLUME 87.6 fl (81.0-99.0); MEAN CORPUSCULAR HGB 26.3 pg (27.0-31.0); MEAN PLATELET VOLUME 8.6 fl (9.6-12.3); MONO # 0.6 10*3/uL (0.1-1.0); MONO % 9.9 % (3.0-9.0); NEUT # 4.1 10*3/uL (2.3-7.9); NEUT % 72.1 % (47.0-73.0); PLATELET COUNT AUTOMATED 169 10*3/uL (130-400); RED BLOOD COUNT 2.74 10*6/uL (4.10-5.10); RED CELL DISTRI WIDTH 23.4 % (0-14.5); WHITE BLOOD COUNT 5.7 10*3/uL (4.8-10.8)
[2017-08-02 05:08] LABS: INTERNATIONAL NORM RATIO 1.5 (2.0-3.5)
[2017-08-02 05:23] LABS: CREATININE 5.83 mg/dL (0.55-1.02); POTASSIUM 4.1 mmol/L (3.5-5.1)
[2017-08-02 07:06] LABS: HEP B CORE AB TOTAL 006718 Negative (Negative); HEPATITIS B SURFACE AB 006395 Non Reactive (.); HEPATITIS B SURFACE AG Negative (Negative)
[2017-08-02 08:00] VITALS: BP 99/53
--- NOTE | 2017-08-02 09:22 | NUR ---
PHYSICAL THERAPY PAtient receiving dialysis at this time. Thank you for this referral. Yamile Alvarez,PT
--- NOTE | 2017-08-02 09:24 | NUR ---
shutdown planner in to see patient to discuss possible short term snf placement. Patient stated she lives with her aunt who is very capable of caring for her. She also has [facility] nursing on Monday/Monday for dressing changes and INR checks as well at PT three days per week. She also has aides coming into the home on Tuesdays/ for 2 hours to assist as well. Patient stated she has been in skilled in the past 2 other times and is refusing at this time. Would like her home health resumed upon discharge. Will need resume home health order prior to discharge.
--- NOTE | 2017-08-02 10:31 | NUR ---
Patient not available for Occupational Therapy evaluation as she is receiving dialysis. OTR will re check on another date. Thank you for this referral. Edda Devi OTR/May
[2017-08-02 12:00] VITALS: BP 112/73; BP 115/65
--- NOTE | 2017-08-02 13:32 | NUR ---
PT TOLERATED DIALYSIS VERY WELL. 1 KILO TAKEN OFF. BP WAS 115/65 AT THE END.
[2017-08-02 16:00] VITALS: BP 93/54
[2017-08-02 19:52] VITALS: BP 93/55
--- NOTE | 2017-08-02 20:15 | NUR ---
PATIENT MOVED TO 522, REPORT GIVEN TO [place].
[2017-08-03] VITALS: BP 108/61
--- NOTE | 2017-08-03 01:00 | NUR ---
24 HR chart check completed.
[2017-08-03 07:43] LABS: ALBUMIN 1.5 gm/dl (3.1-4.5); CREATININE 4.53 mg/dL (0.55-1.02); PHOSPHOROUS 3.8 mg/dL (2.5-4.9); POTASSIUM 4.3 mmol/L (3.5-5.1)
[2017-08-03 08:00] VITALS: BP 84/47
[2017-08-03 12:00] VITALS: BP 85/62
--- NOTE | 2017-08-03 12:31 | NUR ---
PHYSICAL THERAPY PAtient respectfully declines PT this date. She reports she is too fatigued. Thank you for this referral. Yamile Alvarez,PT
--- NOTE | 2017-08-03 13:00 | NUR ---
Patient declined OT services this date with c/o being too tired after dialysis for the last 2 days. OTR will attempt at a later date. Thank you for this referral. Edda Devi OTR/l
[2017-08-03 16:00] VITALS: BP 85/64
--- NOTE | 2017-08-03 16:04 | NUR ---
PtT COMPLAINED OF PAIN TO HER BUTTOCK. SN ASSESSED AND FOUND 2 OPEN AREAS SEE WOUND ASSESSMENT SCREEN.
[2017-08-03 20:00] VITALS: BP 96/49
[2017-08-04] VITALS: BP 98/57
--- NOTE | 2017-08-04 00:31 | NUR ---
24 HR chart check completed.
[2017-08-04 06:47] LABS: BASO % 0.2 % (0.0-1.0); EOS # 0.3 10*3/uL (0.0-0.4); EOS % 6.8 % (1.0-4.0); LYMPH % 21.3 % (27.0-41.0); MEAN CELL VOLUME 88.9 fl (81.0-99.0); MEAN CORPUSCULAR HGB 25.9 pg (27.0-31.0); MEAN CORPUSCULAR HGB CONC 29.2 g/dl (33.0-37.0); MEAN PLATELET VOLUME 9.4 fl (9.6-12.3); MONO # 0.7 10*3/uL (0.1-1.0); MONO % 15.4 % (3.0-9.0); NEUT # 2.6 10*3/uL (2.3-7.9); NEUT % 56.1 % (47.0-73.0); PLATELET COUNT AUTOMATED 160 10*3/uL (130-400); RED CELL DISTRI WIDTH 23.3 % (0-14.5); WHITE BLOOD COUNT 4.6 10*3/uL (4.8-10.8)
[2017-08-04 06:49] LABS: ALBUMIN 1.5 gm/dl (3.1-4.5); CREATININE 5.4 mg/dL (0.55-1.02); MAGNESIUM 1.8 mg/dL (1.5-2.1); POTASSIUM 4.4 mmol/L (3.5-5.1)
[2017-08-04 08:00] VITALS: BP 100/64
--- NOTE | 2017-08-04 09:10 | NUR ---
PT IN BED, DRESSING TO LOWER EXTREMITIES, DRAINAGE NOTED ON SHEETS UNDER LEGS. PT DOES NOT WANT DRESSINGS CHANGED RIGHT NOW, WANTS TO WAIT UNTIL THE DOCTORS HAVE COME IN TO SEE HER. AWARE DRESSINGS TO BE CHANGED DAILY. PT STATES NO NEEDS AT THIS TIME. WILL CONTINUE TO MONITOR. RIGHT IJ DIALYSIS CATH INTACT, DRESSING INTACT. BELLA CATH IN, DRAINING WITHOUT DIFFICULTY.
--- NOTE | 2017-08-04 09:16 | NUR ---
PHYSICAL THERAPY Patient refuses PT this date. Yamile Alvarez,PT
--- NOTE | 2017-08-04 09:21 | NUR ---
Patient refused Occupational Therapy evaluation this date with c/o anxiety over possible dialysis today. OTR will attempt at later date. Edda Devi OTR/l
--- NOTE | 2017-08-04 10:20 | NUR ---
DR. MOCK IN TO SEE PATIENT. THEN PT TO DIALYSIS VIA BED.
--- NOTE | 2017-08-04 10:45 | NUR ---
This nurse went in to evaluate new areas located to right buttock and coccyx patient is in dialysis at this time unable to assess wounds.
[2017-08-04 12:00] VITALS: BP 106/72
[2017-08-04 16:00] VITALS: BP 76/59; BP 80/58
--- NOTE | 2017-08-04 16:30 | NUR ---
NOTIFIED DR. HAGEN OF LOW BLOOD PRESSURE POST DIALYSIS. MANUAL HE WOULD LIKE NEPHROLOGY CALLED. CALLED NEPHROLOGY ANSWERING SERIVCE. THEY WILL PAGE DR. PANDA. AWAIT CALL BACK
--- NOTE | 2017-08-04 16:40 | NUR ---
DISCUSS BLOOD PRESSURE OF 80/[address] PANDA. HE STATED AT THIS TIME NO INTERVENTION IS NEEDED. HOWEVER, PLEASE CONTINUE TO MONITOR BLOOD PRESSURE AND IF DROPS BELOW 80 SBP PLEASE ORDER AND GIVE 25 GRAMS OF ALBUMIN.
[2017-08-04 19:14] VITALS: BP 80/44; BP 810/44
[2017-08-04 20:00] VITALS: BP 92/44
--- NOTE | 2017-08-04 20:16 | NUR ---
PT. SITTING UP IN CHAIR. C/O HANDS & FINGERS CRAMPING. WARM COMPRESSES APPLIED. ALSO MEDICATED WITH TYLENOL FOR C/O HANDS/FINGERS CRAMPING.
--- NOTE | 2017-08-04 22:30 | NUR ---
CALLED DR. MCKEON PERTAINING TO PT. C/O HAND & FINGER CRAMPS; NEW ORDER PUT IN FOR NEURONTIN.
[2017-08-05] VITALS: BP 98/54
--- NOTE | 2017-08-05 | NUR ---
PT. RESTING IN BED; STATES THAT NEURONTIN HELPED THE CRAMPS IN HER FINGERS/HAND.
[2017-08-05 06:42] LABS: BASO % 0.3 % (0.0-1.0); EOS # 0.4 10*3/uL (0.0-0.4); EOS % 6.1 % (1.0-4.0); HEMATOCRIT 24.6 % (37.0-47.0); HEMOGLOBIN 7.4 g/dl (12.0-16.0); LYMPH % 14.1 % (27.0-41.0); MEAN CELL VOLUME 86.9 fl (81.0-99.0); MEAN CORPUSCULAR HGB 26.1 pg (27.0-31.0); MEAN CORPUSCULAR HGB CONC 30.1 g/dl (33.0-37.0); MEAN PLATELET VOLUME 8.9 fl (9.6-12.3); MONO # 0.9 10*3/uL (0.1-1.0); MONO % 12.8 % (3.0-9.0); NEUT # 4.8 10*3/uL (2.3-7.9); NEUT % 66.3 % (47.0-73.0); PLATELET COUNT AUTOMATED 152 10*3/uL (130-400); RED BLOOD COUNT 2.83 10*6/uL (4.10-5.10); RED CELL DISTRI WIDTH 23.1 % (0-14.5); WHITE BLOOD COUNT 7.2 10*3/uL (4.8-10.8)
[2017-08-05 06:46] LABS: CREATININE 4.26 mg/dL (0.55-1.02); MAGNESIUM 1.8 mg/dL (1.5-2.1); PHOSPHOROUS 3.2 mg/dL (2.5-4.9); POTASSIUM 4.1 mmol/L (3.5-5.1)
[2017-08-05 08:00] VITALS: BP 97/51
--- NOTE | 2017-08-05 08:00 | NUR ---
SHIFT ASSESSMENT COMPLETED. BED IN LOW POSITION. CALL LIGHT WITHIN REACH. VOICED NO COMPLAINS AT THIS TIME.
--- NOTE | 2017-08-05 08:46 | NUR ---
Shift chart check completed.
[2017-08-05 12:00] VITALS: BP 84/42
[2017-08-05 16:00] VITALS: BP 82/48
[2017-08-05 20:00] VITALS: BP 89/44
--- NOTE | 2017-08-05 20:00 | NUR ---
ALERT & ORIENTED RESTING IN BED WITH EYES CLOSED. AROUSES EASILY UPON ENTERING THE ROOM. PULSE OX 95% ON ROOM AIR. CALL LIGHT WITHIN REACH.
--- NOTE | 2017-08-05 23:54 | NUR ---
MEDICATED WITH TYLENOL FOR C/O GENERALIZED DISCOMFORT.
[2017-08-06] VITALS: BP 85/55
--- NOTE | 2017-08-06 02:00 | NUR ---
RESTING IN BED WITH EYES CLOSED; TYLENOL GIVEN EARLIER APPARENTLY EFFECTIVE.
[2017-08-06 06:59] LABS: BASO % 0.3 % (0.0-1.0); EOS # 0.3 10*3/uL (0.0-0.4); HEMATOCRIT 24.4 % (37.0-47.0); HEMOGLOBIN 7.2 g/dl (12.0-16.0); LYMPH % 17.2 % (27.0-41.0); MEAN CELL VOLUME 87.8 fl (81.0-99.0); MEAN CORPUSCULAR HGB 25.9 pg (27.0-31.0); MEAN CORPUSCULAR HGB CONC 29.5 g/dl (33.0-37.0); MEAN PLATELET VOLUME 9.2 fl (9.6-12.3); MONO # 0.8 10*3/uL (0.1-1.0); MONO % 12.9 % (3.0-9.0); NEUT # 3.9 10*3/uL (2.3-7.9); NEUT % 64.3 % (47.0-73.0); PLATELET COUNT AUTOMATED 185 10*3/uL (130-400); RED BLOOD COUNT 2.78 10*6/uL (4.10-5.10); WHITE BLOOD COUNT 6.1 10*3/uL (4.8-10.8)
[2017-08-06 07:05] LABS: INTERNATIONAL NORM RATIO 2.3 (2.0-3.5)
[2017-08-06 07:30] LABS: ALBUMIN 1.9 gm/dl (3.1-4.5); POTASSIUM 4.2 mmol/L (3.5-5.1)
--- NOTE | 2017-08-06 07:30 | NUR ---
Shift chart check completed.
[2017-08-06 07:35] LABS: CREATININE 5.85 mg/dL (0.55-1.02); MAGNESIUM 1.7 mg/dL (1.5-2.1); PHOSPHOROUS 4.2 mg/dL (2.5-4.9)
[2017-08-06 08:00] VITALS: BP 88/58
--- NOTE | 2017-08-06 08:00 | NUR ---
BED IN LOW POSITION. CALL LIGHT WITHIN REACH. VOICED NO CONCERNS AT THIS TIME.
[2017-08-06 16:00] VITALS: BP 84/60
--- NOTE | 2017-08-06 19:35 | NUR ---
CALLED AND SPOKE TO DR MCKEON REGARDING TALK OF DIALYSIS CATHETER PLACEMENT TOMORROW BUT NO ORDERS IN. QUESTIONED IF PT SHOULD BE NPO AT MIDNIGHT. HE STATES IF THERE ARE NO ORDERS IN TO JUST CONTINUE HER DIET.
[2017-08-06 20:00] VITALS: BP 80/50
--- NOTE | 2017-08-06 20:00 | NUR ---
ASSUMED CARE OF PATIENT. ASSESSMENT COMPLETE. RESTING IN BED. NO VOICED COMPLAINTS. CALL LIGHT IN REACH. WILL CONTINUE TO MONITOR.
--- NOTE | 2017-08-06 20:41 | NUR ---
DR MCKEON MADE AWARE OF BP 80/50, ORDER RECEIVED TO RECHECK IN AN HOUR
[2017-08-07] VITALS (7 sets, daily range): BP systolic 59–120; BP diastolic 38–94
--- NOTE | 2017-08-07 02:00 | NUR ---
SLEEPING. RESP EASY AND NONLABORED ON 2L NC. NO DISTRESS NOTED. CM INTACT. CALL LIGHT IN REACH. WILL CONTINUE TO MONITOR.
[2017-08-07 06:18] LABS: BASO % 0.3 % (0.0-1.0); EOS # 0.2 10*3/uL (0.0-0.4); EOS % 3.2 % (1.0-4.0); HEMATOCRIT 22.7 % (37.0-47.0); HEMOGLOBIN 6.7 g/dl (12.0-16.0); LYMPH # 0.8 10*3/uL (1.3-4.4); LYMPH % 11.4 % (27.0-41.0); MEAN CELL VOLUME 87.3 fl (81.0-99.0); MEAN CORPUSCULAR HGB 25.8 pg (27.0-31.0); MEAN CORPUSCULAR HGB CONC 29.5 g/dl (33.0-37.0); MEAN PLATELET VOLUME 9.7 fl (9.6-12.3); MONO # 0.7 10*3/uL (0.1-1.0); MONO % 10.2 % (3.0-9.0); NEUT # 5.4 10*3/uL (2.3-7.9); NEUT % 74.6 % (47.0-73.0); PLATELET COUNT AUTOMATED 203 10*3/uL (130-400); RED CELL DISTRI WIDTH 22.8 % (0-14.5); WHITE BLOOD COUNT 7.3 10*3/uL (4.8-10.8)
--- NOTE | 2017-08-07 06:39 | NUR ---
CALLED AND MADE DR MCKEON AWARE OF H&H 6.7 AND 22.7 HE STATES TO ORDER 1 UNIT OF BLOOD TO BE GIVEN DURING DIALYSIS
[2017-08-07 06:43] LABS: CREATININE 6.94 mg/dL (0.55-1.02); PHOSPHOROUS 4.2 mg/dL (2.5-4.9)
[2017-08-07 06:52] LABS: INTERNATIONAL NORM RATIO 2.6 (2.0-3.5)
--- NOTE | 2017-08-07 08:02 | NUR ---
DIALYSIS NURSE CALLED AT THIS TIME, ASKING ABOUT PT'S HGB IF IT HAD BEEN ADDRESSED, UPDATED NURSE THAT THE HOSPITALISTS WERE NOTIFIED AND THEY ORDERED A UNIT OF PACKED CELLS TO BE TRANSFUSED DURING DIALYSIS.
--- NOTE | 2017-08-07 08:20 | NUR ---
PHYSICAL THERAPY PAtient to receive blood during dialysis this am. Will check on patients status at a later date. Thank you for this referral. Yamile Alvarez,PT
--- NOTE | 2017-08-07 09:30 | NUR ---
BLOOD BANK CALLED AT THIS TIME, STATES PT HAS ANTIBODIES AND THEY HAVE TO SEND OUT FOR HER PACKED CELLS.
--- NOTE | 2017-08-07 09:50 | NUR ---
PT TRANSPORTED TO DIALYSIS AT THIS TIME.
--- NOTE | 2017-08-07 12:59 | NUR ---
Patient receiving blood and dialysis this date. OTR will recheck at a later date. Edda Devi OTR/l
--- NOTE | 2017-08-07 13:09 | NUR ---
CALL RECEIVED FROM DIALYSIS QUESTIONING IF PT IS TO BE GETTING A PERMANENT DIALYSIS CATHETER, CALL PLACED TO DR METCALF, STATES TO CALL NEPHROLOGY TO SEE IF THEY ARE PLANNING FOR THE PT TO HAVE ONE PLACED. CALL PLACED TO DR REID, AWAITING CALL BACK.
--- NOTE | 2017-08-07 14:10 | NUR ---
PT BACK FROM DIALYSIS AT THIS TIME.
--- NOTE | 2017-08-07 15:15 | NUR ---
SPOKE WITH DR REID REGARDING PLACEMENT OF PERMANENT DIALYSIS CATH, STATES WE ARE WAITING ON THE SURGEON TO SEE WHEN PT IS STABLE FOR THE CATH. DR GOMEZ HERE AT THIS TIME. STATES HE IS WAITING TO VISUALIZE PT'S WOUNDS, WHICH HE WILL ASSESS THEM TOMORROW AND SEE IF SHE IS MORE HEALED AND READY FOR SURGERY AT THAT TIME.
--- NOTE | 2017-08-07 20:00 | NUR ---
ASSUMED CARE OF PATIENT. ASSESSMENT COMPLETE. RESTING IN BED. NO VOICED COMPLAINTS. CALL LIGHT IN REACH. BED ALARM ON. WILL CONTINUE TO MONITOR.
--- NOTE | 2017-08-07 20:45 | NUR ---
IV started left wrist with #22 protective cath after 2 attempts. Site prepped with Chloroprep. Sterile dressing applied. Patient tolerated procedure well. BRENT ARAGON
--- NOTE | 2017-08-07 21:00 | NUR ---
I UNIT BLOOD STARTED AT THIS TIME PER ORDER
--- NOTE | 2017-08-07 22:53 | NUR ---
BLOOD TRANSFUSION COMPLETE AT THIS TIME
[2017-08-08] VITALS: BP 85/43
--- NOTE | 2017-08-08 02:00 | NUR ---
SLEEPING. RESP EASY AND NONLABORED ON 3L NC. NO DISTRESS NOTED. CM INTACT. CALL LIGHT IN REACH. WILL CONTINUE TO MONITOR.
[2017-08-08 06:50] LABS: BASO % 0.3 % (0.0-1.0); EOS # 0.3 10*3/uL (0.0-0.4); EOS % 4.2 % (1.0-4.0); HEMATOCRIT 23.9 % (37.0-47.0); HEMOGLOBIN 7.2 g/dl (12.0-16.0); LYMPH % 13.3 % (27.0-41.0); MEAN CELL VOLUME 87.9 fl (81.0-99.0); MEAN CORPUSCULAR HGB 26.5 pg (27.0-31.0); MEAN CORPUSCULAR HGB CONC 30.1 g/dl (33.0-37.0); MEAN PLATELET VOLUME 9.3 fl (9.6-12.3); MONO % 13.4 % (3.0-9.0); NEUT # 5.1 10*3/uL (2.3-7.9); NEUT % 68.5 % (47.0-73.0); PLATELET COUNT AUTOMATED 206 10*3/uL (130-400); RED BLOOD COUNT 2.72 10*6/uL (4.10-5.10); RED CELL DISTRI WIDTH 21.6 % (0-14.5); WHITE BLOOD COUNT 7.4 10*3/uL (4.8-10.8)
[2017-08-08 07:26] LABS: CREATININE 7.63 mg/dL (0.55-1.02); PHOSPHOROUS 5.1 mg/dL (2.5-4.9); POTASSIUM 4.1 mmol/L (3.5-5.1)
[2017-08-08 08:00] VITALS: BP 71/51
--- NOTE | 2017-08-08 08:57 | NUR ---
PHYSICAL THERAPY PAtient evaluated on 5, full evaluation to follow. Continue with PT as per plan of care with fall, new body tremors, new dialysis and acute debility precautions. MAy require SNF for impaired mobility- patient refusing to date. Will require 24/7 physical assist if home with complete home health services. PAtient is high complexity via chart review, tests and evaluation: 95440. Thank you for this referral. Yamile Alvarez,PT
--- NOTE | 2017-08-08 10:33 | NUR ---
WAITING FOR DR. GOMEZ TO COME AND SEE PATIENTS WOUNDS TO BLE. AFTER INSPECTION BY THE DR, DRESSING CHANGE WILL BE COMPLETED.
[2017-08-08 12:00] VITALS: BP 113/95
--- NOTE | 2017-08-08 14:05 | NUR ---
In to see patient to discuss discharge planning. Patient seemed irritated and stated "I just don't know". "I can't even stand, my legs wont hold me and I have tremors". she said until she finds out more about what is going on with her health, she just doesn't know what to do or where to go.
[2017-08-08 16:00] VITALS: BP 93/53
--- NOTE | 2017-08-08 17:58 | NUR ---
DR. GOMEZ IN TO SEE THE PATIENT. HE STATED HE WOULD LOOK AT THE WOUNDS TOMORROW WITH WOUND CARE NURSE. HE ALSO STATED THAT THE DRESSINGS DON'T NEED TO BE CHANGED UNTIL TOMORROW.
[2017-08-08 20:00] VITALS: BP 83/70
--- NOTE | 2017-08-08 20:00 | NUR ---
ASSUMED CARE OF PATIENT. ASSESSMENT COMPLETE. RESTING IN BED. NO VOICED COMPLAINTS. DRESSINGS SOILED, BUT NOT CHANGED D/T DR GOMEZ ORDER. CALL LIGHT IN REACH. WILL CONTINUE TO MONITOR.
[2017-08-09] VITALS: BP 90/50
--- NOTE | 2017-08-09 02:09 | NUR ---
SLEEPING. RESP EASY AND NONLABORED ON 3L NC. NO DISTRESS NOTED. CALL LIGHT IN REACH. WILL CONTINUE TO MONITOR.
[2017-08-09 06:33] LABS: BASO % 0.3 % (0.0-1.0); EOS # 0.4 10*3/uL (0.0-0.4); EOS % 4.8 % (1.0-4.0); HEMATOCRIT 28.3 % (37.0-47.0); HEMOGLOBIN 8.2 g/dl (12.0-16.0); LYMPH % 13.9 % (27.0-41.0); MEAN CELL VOLUME 88.7 fl (81.0-99.0); MEAN CORPUSCULAR HGB 25.7 pg (27.0-31.0); MEAN PLATELET VOLUME 9.6 fl (9.6-12.3); MONO # 1.4 10*3/uL (0.1-1.0); MONO % 18.9 % (3.0-9.0); NEUT # 4.5 10*3/uL (2.3-7.9); NEUT % 61.8 % (47.0-73.0); PLATELET COUNT AUTOMATED 212 10*3/uL (130-400); RED BLOOD COUNT 3.19 10*6/uL (4.10-5.10); RED CELL DISTRI WIDTH 20.8 % (0-14.5); WHITE BLOOD COUNT 7.3 10*3/uL (4.8-10.8)
[2017-08-09 06:58] LABS: INTERNATIONAL NORM RATIO 2.9 (2.0-3.5)
[2017-08-09 07:05] LABS: ALBUMIN 2.1 gm/dl (3.1-4.5); CREATININE 5.36 mg/dL (0.55-1.02); POTASSIUM 4.1 mmol/L (3.5-5.1)
[2017-08-09 08:00] VITALS: BP 90/49
--- NOTE | 2017-08-09 08:49 | NUR ---
ASSESSMENT COMPLETED. DRESSINGS TO BLE SOILED, FOUL ODOR NOTED. ATTEMPTED TO DO DRESSING CHANGE BUT SEEN NOTE REGARDING DR AND WOUND CARE NURSE SEEING PT TODAY. LEFT MESSAGE WITH DR GOMEZ VIA VOICEMAIL. PT VOICES NO OTHER C/O AT THIS TIME. CALL LIGHT IN REACH.
--- NOTE | 2017-08-09 09:05 | NUR ---
In to talk to patient about a plan for discharge. [place] RN also in room. Discussed SNF VS. [facility] explained differences and need for continued wound care. Patient agreed to [facility], provided list of agencies, patient chose [facility] in [place]. Will contact and fax referral.
--- NOTE | 2017-08-09 09:29 | NUR ---
Contacted [facility], faxed referral for [facility], waiting on acceptance.
--- NOTE | 2017-08-09 11:04 | NUR ---
DRESSING CHANGE COMPLETED AND PHOTOGRAPHS TAKEN PER PHYSICIAN ORDER.DR GOMEZ ROUNDED AND DID DRSG CHANGE AND REQUESTED ME NOT TO PUT BETADINE ON AMPUTATED TOE SITE D/T IT BEING HEALED.
[2017-08-09 12:00] VITALS: BP 90/67
--- NOTE | 2017-08-09 12:43 | NUR ---
Patient stated instead of going to [facility], she would rather go to [facility] in [place]. Will contact and fax referral.
--- NOTE | 2017-08-09 12:47 | NUR ---
PHYSICAL THERAPY Pt seen this AM 1:1 and going to have her dressing change to bilateral feet ankles. JOVANY NICHOLS ETL INFORMATICA DEVELOPER.
--- NOTE | 2017-08-09 12:48 | NUR ---
PHYSICAL THERAPY Pt's dressing completed this PM and having her lunch at this time and said tomorrow. JOVANY NICHOLS POUNCER MACHINE.
--- NOTE | 2017-08-09 12:51 | NUR ---
Referral faxed to [facility] in [place], waiting on acceptance.
--- NOTE | 2017-08-09 13:51 | NUR ---
Patient offered Occupational Therapy evaluation this date but patient pleasantly refused stating she was to tired from dialysis yesterday. OTR will attempt at a later date. Edda Devi OTR/May
[2017-08-09 16:00] VITALS: BP 91/59
[2017-08-09 20:00] VITALS: BP 81/52
--- NOTE | 2017-08-09 20:00 | NUR ---
ASSUMED CARE OF PATIENT. ASSESSMENT COMPLETE. RESTING IN BED. NO VOICED COMPLAINTS. CALL LIGHT IN REACH. WILL CONTINUE TO MONITOR.
--- NOTE | 2017-08-09 23:50 | NUR ---
ASSUMED CARE FOR THIS PT AT THIS TIME. NO C/O VOICED. PT RESTING QUIETLY IN BED. CALL LIGHT IN REACH.
[2017-08-10] VITALS: BP 73/51
--- NOTE | 2017-08-10 02:31 | NUR ---
24 HR chart check completed.
[2017-08-10 04:00] VITALS: BP 75/61
[2017-08-10 06:25] LABS: BASO % 0.5 % (0.0-1.0); EOS # 0.3 10*3/uL (0.0-0.4); EOS % 4.8 % (1.0-4.0); HEMATOCRIT 28.7 % (37.0-47.0); HEMOGLOBIN 8.5 g/dl (12.0-16.0); LYMPH # 1.1 10*3/uL (1.3-4.4); LYMPH % 17.9 % (27.0-41.0); MEAN CORPUSCULAR HGB 26.6 pg (27.0-31.0); MEAN CORPUSCULAR HGB CONC 29.6 g/dl (33.0-37.0); MEAN PLATELET VOLUME 9.2 fl (9.6-12.3); MONO # 1.2 10*3/uL (0.1-1.0); NEUT # 3.5 10*3/uL (2.3-7.9); NEUT % 57.6 % (47.0-73.0); PLATELET COUNT AUTOMATED 250 10*3/uL (130-400); RED BLOOD COUNT 3.19 10*6/uL (4.10-5.10); RED CELL DISTRI WIDTH 20.5 % (0-14.5)
[2017-08-10 06:49] LABS: CREATININE 7.45 mg/dL (0.55-1.02); PHOSPHOROUS 4.4 mg/dL (2.5-4.9); POTASSIUM 4.5 mmol/L (3.5-5.1)
[2017-08-10 06:51] LABS: INTERNATIONAL NORM RATIO 2.7 (2.0-3.5)
--- NOTE | 2017-08-10 07:30 | NUR ---
ASSUMED CARE OF PT AT THIS TIME, RESPS EASY AND NONLABORED WTIH NO S/S OF DISTRESS CALL LIGHT WITH IN REACH
[2017-08-10 08:00] VITALS: BP 80/50
--- NOTE | 2017-08-10 09:17 | NUR ---
Patient has been accepted to [facility] in [facility] and can go when ready for discharge.
--- NOTE | 2017-08-10 09:25 | NUR ---
PHYSICAL THERAPY Patient presented to therapy with report of being scheduled to have dialysis this AM. Patient at first said she didnt want to do therapy because she didnt want to be tired before going to dialysis. However, eventually she agreed to do supine LE ther ex in the bed. Patient performed supine ther ex AROM in all planes x 20 reps each. Patient tolerated ther ex with some increased fatigue. Patient was 1:1 with this SIGHTER FOR 20 MINUTES. POORNIMA SANTIAGO SIGHTER
--- NOTE | 2017-08-10 10:25 | NUR ---
PT CURRENTLY AT DIALYSIS
[2017-08-10 12:00] VITALS: BP 102/74
--- NOTE | 2017-08-10 14:38 | NUR ---
PT RETURNED TO ROOM POST DIALYSIS, PT STABLE AT THIS TIME
[2017-08-10] MEDS ORDERED: CIPROFLOXACIN500 M4 PO (15:56)
[2017-08-10] MEDS ORDERED: MIDODRINE HCL5 M1 PO (15:56)
[2017-08-10] MEDS ORDERED: CALCIUM ACETAT667 MG PO (15:56)
[2017-08-10 16:00] VITALS: BP 102/74; BP 59/33; BP 76/42
--- NOTE | 2017-08-10 17:00 | NUR ---
ATTEMPTED TO PHOTOGRAPH BLE AND BUTTOCK AND PT REFUSED TO TAKE THE DRESSINGS OFF AND "HAVE TO HAVE PICTURES AGAIN, WHEN THEY WERE DONE ALREADY".
--- NOTE | 2017-08-10 17:40 | NUR ---
Discharge instructions reviewed with patient/family. Patient receptive and verbalizes understanding. Follow-up care arranged. Written instructions given to patient/family.TELEMETRY ACCOUNTED FOR. OMAR HUBBARD
--- NOTE | 2017-08-10 17:53 | NUR ---
REPORT CALLED TO [facility].
--- NOTE | 2017-08-11 08:01 | NUR ---
PHYSICAL THERAPY CO-SIGN I approve of the Phyical Therapy notes written above. LORIN YBARRA PT
== END 2017-08-10 17:40 | DRG 871 ==
LOC: ED 09:09 → 4E 11:14 → EDHOLD 11:14 → ICCU 11:14 → 5E 11:14 → EDHOLD 11:25 → ICCU 11:25 → EDHOLD 14:54 → 4E 15:31 → ICCU 16:15 → 5E 08-02 19:31
PROVIDERS: Family Medicine; Family Medicine Adult Medicine; Internal Medicine; Internal Medicine Hospice and Palliative Medicine; Internal Medicine Nephrology; Student in an Organized Health Care Education/Training Program; ADMIT Internal Medicine
PROC: 30233N1 Transfusion of Nonautologous Red Blood Cells into Peripheral Vein, Percutaneous Approach (ICD-10-PCS; principal; 2017-07-29)
PROC: 30233K1 Transfusion of Nonautologous Frozen Plasma into Peripheral Vein, Percutaneous Approach (ICD-10-PCS; 2017-08-01)
PROC: 30233L1 Transfusion of Nonautologous Fresh Plasma into Peripheral Vein, Percutaneous Approach (ICD-10-PCS; 2017-08-01)
PROC: B543ZZA Ultrasonography of Right Jugular Veins, Guidance (ICD-10-PCS; 2017-08-01)
PROC: B513ZZA Fluoroscopy of Right Jugular Veins, Guidance (ICD-10-PCS; 2017-08-01)
PROC: 05HM33Z Insertion of Infusion Device into Right Internal Jugular Vein, Percutaneous Approach (ICD-10-PCS; 2017-08-01)
PROC: 5A1D70Z Performance of Urinary Filtration, Intermittent, Less than 6 Hours Per Day (ICD-10-PCS; 2017-08-02)
PROC: 5A1D70Z Performance of Urinary Filtration, Intermittent, Less than 6 Hours Per Day (ICD-10-PCS; 2017-08-04)
PROC: 5A1D70Z Performance of Urinary Filtration, Intermittent, Less than 6 Hours Per Day (ICD-10-PCS; 2017-08-10)
DX: A41.9 Sepsis, unspecified organism (principal); N17.0 Acute kidney failure with tubular necrosis; E43 Unspecified severe protein-calorie malnutrition; E87.2 Acidosis; E67.8 Other specified hyperalimentation; L97.919 Non-pressure chronic ulcer of unspecified part of right lower leg with unspecified severity; L03.116 Cellulitis of left lower limb; I48.0 Paroxysmal atrial fibrillation; E87.1 Hypo-osmolality and hyponatremia; A04.72 Enterocolitis due to Clostridium difficile, not specified as recurrent; L97.929 Non-pressure chronic ulcer of unspecified part of left lower leg with unspecified severity; Z68.42 Body mass index [BMI] 45.0-49.9, adult; E87.5 Hyperkalemia; E83.39 Other disorders of phosphorus metabolism; I73.9 Peripheral vascular disease, unspecified; I87.2 Venous insufficiency (chronic) (peripheral); K21.9 Gastro-esophageal reflux disease without esophagitis; B96.5 Pseudomonas (aeruginosa) (mallei) (pseudomallei) as the cause of diseases classified elsewhere; J44.9 Chronic obstructive pulmonary disease, unspecified; D64.9 Anemia, unspecified; E86.0 Dehydration; E66.01 Morbid (severe) obesity due to excess calories; L98.499 Non-pressure chronic ulcer of skin of other sites with unspecified severity; I89.0 Lymphedema, not elsewhere classified; E16.2 Hypoglycemia, unspecified; N18.3 Chronic kidney disease, stage 3 (moderate); I25.10 Atherosclerotic heart disease of native coronary artery without angina pectoris; R65.20 Severe sepsis without septic shock; Z88.8 Allergy status to other drugs, medicaments and biological substances; Z91.041 Radiographic dye allergy status; Z79.899 Other long term (current) drug therapy; Z79.82 Long term (current) use of aspirin; I25.2 Old myocardial infarction; Z89.421 Acquired absence of other right toe(s); Z90.49 Acquired absence of other specified parts of digestive tract; Z87.891 Personal history of nicotine dependence; Z80.1 Family history of malignant neoplasm of trachea, bronchus and lung; Z83.3 Family history of diabetes mellitus; Z82.49 Family history of ischemic heart disease and other diseases of the circulatory system; Z82.3 Family history of stroke; Z99.2 Dependence on renal dialysis

== ENCOUNTER 2018-08-28 10:07 | Emergency (ER) | payer MEDICARE, OTHER ==
[2018-08-28] VITALS (13 sets, daily range): BP systolic 40–100; BP diastolic 00–40
--- NOTE | ~2018-08-28 | EKG ---
[place], [place] ELECTROCARDIOGRAM REPORT NAME: NYA MARTINEZ UNIT #: [id number] ROOM: DOCTOR: EPIPHANY DRAFT REPORT BIRTHDATE: [birth year] [facility] Test Date: 2018-08-28 Test Time: 10:49:57 Pat Name: NYA MARTINEZ Department: Room: 408 Gender: F Color Grinder: : [id number] Requested By: GAURI HAHN PA-C Order Number: [id number] Reading MD: Lyudmila Bruce MD Measurements Intervals Locke Rate: 92 P: VA: QRS: -47 QRSD: 127 T: 64 QT: 378 QTc: 468 Interpretive Statements Sinus rhythm Left bundle branch block Electronically Signed On 08-31-2018 12:06:17 PDT by Lyudmila Bruce MD CM:EKGRPT:ELECTROCARDIOGRAM REPORT [id number] GAURI HAHN PA-C EPIPHANY DRAFT REPORT GAURI HAHN PA-C
[~2018-08-28 10:07] MED LIST changes: +CALCIUM ACETAT667 MG PO; +GERI-KOT8.6 MG PO; +MIDODRINE HCL5 M1 PO
[2018-08-28 11:02] LABS: HEMATOCRIT 37.6 % (37.0-47.0); HEMOGLOBIN 11.8 g/dl (12.0-16.0); MEAN CELL VOLUME 98.4 fl (81.0-99.0); MEAN CORPUSCULAR HGB 30.9 pg (27.0-31.0); MEAN CORPUSCULAR HGB CONC 31.4 g/dl (33.0-37.0); MEAN PLATELET VOLUME 9.7 fl (9.6-12.3); PLATELET COUNT AUTOMATED 307 10*3/uL (130-400); RED BLOOD COUNT 3.82 10*6/uL (4.10-5.10); RED CELL DISTRI WIDTH 18.5 % (0-14.5); WHITE BLOOD COUNT 24.9 10*3/uL (4.8-10.8)
[2018-08-28 11:09] LABS: INTERNATIONAL NORM RATIO 1.4 (2.0-3.5)
[2018-08-28 11:20] LABS: TOTAL CELLS COUNTED 100 #CELLS
[2018-08-28 11:21] LABS: PLATELET SUFFICIENCY NORMAL (NORMAL)
[2018-08-28 11:22] LABS: ALBUMIN 1.3 gm/dl (3.1-4.5); ALKALINE PHOSPHATASE 344 U/L (45-117); BUN 45 mg/dl (7-24); CHLORIDE 99 mmol/L (98-107); CREATININE 4.19 mg/dL (0.55-1.02); LIPASE 73 U/L (73-393); POTASSIUM 5.9 mmol/L (3.5-5.1); SGOT/AST 78 IU/L (3-35); SGPT/ALT 39 U/L (12-78); SODIUM 133 mmol/L (136-145)
[2018-08-28 11:25] LABS: TROPONIN I < 0.015 ng/ml (<0.045)
== END 2018-08-28 17:20 | disposition short-term general hospital (02) ==
LOC: ED 10:07 → EDHOLD 13:12 → 4E 13:48 → EDHOLD 13:48 → 4E 13:48 → ED 17:20
PROVIDERS: Physician Assistant
DX: R65.20 Severe sepsis without septic shock (principal); N18.5 Chronic kidney disease, stage 5; E87.5 Hyperkalemia; I95.9 Hypotension, unspecified; J18.9 Pneumonia, unspecified organism; Z91.041 Radiographic dye allergy status; Z88.8 Allergy status to other drugs, medicaments and biological substances; Z79.2 Long term (current) use of antibiotics; Z79.899 Other long term (current) drug therapy; Z90.49 Acquired absence of other specified parts of digestive tract; Z87.891 Personal history of nicotine dependence